=== PATIENT | male | born 1965 | race Caucasian/White ===

== ENCOUNTER 2018-02-18 19:45 | Inpatient (IN) | payer MEDICARE, OTHER ==
[~2018-02-18] VITALS: Ht 170.2 cm; Wt 60.0 kg
[2018-02-18] MEDS ORDERED: SODIUM CHLORIDE 0.9% 1L BAG IV* STA (19:57)
[2018-02-18] MEDS ORDERED: CEFEPIME 2GM/50 ML (PMX) 50 ML IVPB STA (19:57)
[2018-02-18] MEDS ORDERED: VANCOMYCIN 1 GM (PMX) 250 ML IVPB ONE (20:00)
[2018-02-18] MEDS ORDERED: LEVOFLOXACIN 750MG/D5W (PMX) 150 ML IVPB ONE (20:00)
--- NOTE | 2018-02-18 20:00 | ERD ---
ER Documentation Chief Complaint Chief Complaint fever, tachy HPI 52-year-old male history of multiple sclerosis but recent MRI was negative, weakness, urinary tract infection, anemia, decubitus ulcers, BPH, schizophrenia, depression and anxiety presents to the ED via rescue ambulance from [facility] for evaluation of fever tachycardia. Patient complains of generalized weakness but denies shortness of breath, chest pain or palpitations. Abdominal pain, nausea vomiting. Fever at [facility] was apparently 100.5 degrees. History is limited due to the patient's clinical condition and supplemented by his sister who was at the bedside. ROS All systems reviewed and are negative except as per history of present illness. Medications Home Meds Reported Medications Insulin Aspart* (Novolog Insulin Pen*) 100 Unit/Ml Soln, 0 SC .SLIDING SCALE AC, EA IF BS 71-150=0 UNIT<70=GIVE ORANGE JUICE OR 1GM GLUCAGON THEN CALL MD. 151-200=2 UNITS, 201-250=4 UNITS,251-300=6 GIWKP165-429=7 UNITS,351-400=10 UNITS>400=12 UNITS AND CALL MD. 02/18/18 Olanzapine* (Zyprexa*) 2.5 Mg Tablet, 2.5 MG PO BID, #30 TAB 02/18/18 Ondansetron Hcl* (Zofran*) 4 Mg Tab, 4 MG PO Q12H PRN for NAUSEA AND OR VOMITING, TAB 02/18/18 Ascorbic Acid (Vitamin C) 500 Mg Tab, 500 MG PO BID, TAB 02/18/18 Acetaminophen* (Tylenol*) 325 Mg Tablet, 650 MG PO DAILY PRN for PAIN AND OR ELEVATED TEMP, TAB 02/18/18 Acetaminophen* (Tylenol*) 325 Mg Tablet, 650 MG PO Q6H PRN for MILD PAIN LEVEL 1-3, TAB AND FEVER>101F 02/18/18 Tamsulosin Hcl* (Tamsulosin Hcl*) 0.4 Mg Cap.er.24h, 0.4 MG PO DAILY, CAP 02/18/18 Saw/Vit E/Sod Merlene/Lyc/Beta/Pyg (Prostate Health Caplet) 1 Each Tablet, 30 GM PO BID, TAB 02/18/18 Protein Supplement (Promod) 946 Ml Liquid, 30 ML PO TID 02/18/18 Multivitamin with Minerals (Multiple Vitamin) 1 Each Tablet, 1 EACH PO DAILY, TAB 02/18/18 Magnesium Hydroxide* (Milk Of Magnesia*) 400 Mg/5 Ml Oral.susp, 30 ML PO Q24H for CONSTIPATION, ML 02/18/18 Mag Hydrox/Al Hydrox/Simeth (Maalox Advanced Suspension) 355 Ml Oral.susp, 30 ML PO Q6H 02/18/18 Enoxaparin Sodium* (Lovenox*) 40 Mg/0.4 Ml Syringe, 40 MG SC DAILY, SYR 02/18/18 Escitalopram Oxalate* (Lexapro*) 10 Mg Tablet, 10 MG PO QHS, #30 TAB 02/18/18 Bisacodyl* (Bisacodyl*) 10 Mg Supp, 10 MG [place] Q24H for CONSTIPATION, SUPP 02/18/18 Docusate Sodium* (Colace*) 100 Mg Capsule, 100 MG PO BID, #60 CAP 02/18/18 Benzocaine/Menthol* (Cepacol* Sore Throat Lozenges) 1 Each Lozenge, 1 EACH MM q2h PRN for SORE THROAT, LOZENGE 02/18/18 Baclofen* (Baclofen*) 20 Mg Tablet, 20 MG PO BID, TAB 02/18/18 Amantadine Hcl* (Amantadine Hcl*) 100 Mg Capsule, 100 MG PO BID, #60 CAP 02/18/18 Allergies Allergies: Coded Allergies: No Known Allergy (Unverified , 02/18/18) PMhx/Soc Reviewed in chart. As per HPI. Hx Neurological Disorder: Yes (Multiple sclerosis) Hx Cardiac Disorders: No Hx Psychiatric Problems: Yes (Schizophrenia, depression) Hx Miscellaneous Medical Probl: Yes (Anemia, pressure ulcers) Hx Alcohol Use: No Hx Substance Use: No Smoking Status: Former smoker FmHx No family history relevant to presenting Physical Exam Vitals Temperature: 97.8. Blood pressure: 100/56. Pulse: 140. Respirations: 20. O2 saturation 98% on room air. Physical Exam Const: Alert, chronically ill-appearing in moderate distress. Head: Atraumatic Eyes: Normal Conjunctiva ENT: Normal External Ears, Nose and Mouth. Mucous membranes are dry. Neck: Full range of motion. No meningismus. Resp: Tachycardic. Breath sounds are diminished at the bases but otherwise clear to auscultation bilaterally. No rales rhonchi or wheezes. Cardio: Regular rate and rhythm, no murmurs Abd: Soft, suprapubic tenderness with mild distention. No rebound or guarding. Normal bowel sounds Skin: No petechiae or rashes. Multiple decubiti in various stages on sacrum and and feet. Back: No midline or flank tenderness Ext: No cyanosis, or edema Neur: Awake and alert. Psych: Normal Mood and Affect Result Diagram: 02/21/18 1036 02/21/18 1036 Results 24 hrs Laboratory Tests Test 02/18/18 19:59 02/18/18 20:00 02/18/18 20:01 02/18/18 20:35 POC Venous 5.2 mmol/L Lactate White Blood 13.0 10^3/ul Count Red Blood Count 5.52 10^6/ul Hemoglobin 12.3 g/dl Hematocrit 40.3 % Mean 73.0 fl Corpuscular Volume Mean 22.3 pg Corpuscular Hemoglobin Mean 30.5 g/dl Corpuscular Hemoglobin Conc ent Red Cell 19.6 % Distribution Width Platelet Count 753 10^3/UL Mean Platelet 8.7 fl Volume Immature 0.200 % Granulocytes % Neutrophils % % Segmented 53 % Neutrophils % (Manual) Band 39 % Neutrophils % (Manual) Lymphocytes % % Lymphocytes % 4 % (Manual) Monocytes % % Monocytes % 4 % (Manual) Eosinophils % % Basophils % % Nucleated Red 0.0 /100WBC Blood Cells % Immature 0.020 10^3/ul Granulocytes # Neutrophils # 10^3/ul Neutrophils # 7.5 10^3/ul (Manual) Band 5.0 10^3/ul Neutrophils # Lymphocytes 0.5 10^3/ul (Manual) Lymphocytes # 10^3/ul Monocytes # 10^3/ul Monocytes # 0.5 10^3/ul (Manual) Eosinophils # 10^3/ul Basophils # 10^3/ul Nucleated Red 10^3/ul Blood Cells # Pathologist DK Review (Hematol ogy) Platelet INCREASED Estimate Polychromasia 1+ Poikilocytosis 2+ Anisocytosis 1+ Sodium Level 133 mmol/L Potassium Level 5.1 mmol/L Chloride Level 96 mmol/L Carbon Dioxide 15 mmol/L Level Anion Gap 22 Blood Urea 74 mg/dl Nitrogen Creatinine 4.56 mg/dl Est Glomerular 14 mL/min Filtrat Rate mL/min Glucose Level 170 mg/dl Calcium Level 9.6 mg/dl Total Bilirubin 0.1 mg/dl Direct 0.00 mg/dl Bilirubin Indirect 0.1 mg/dl Bilirubin Aspartate Amino 30 IU/L Transf (AST/SGO T) Alanine 37 IU/L Aminotransferas e (ALT/SGPT) Alkaline 215 IU/L Phosphatase Troponin I < 0.012 ng/ml Total Protein 6.6 g/dl Albumin 3.2 g/dl Globulin 3.40 g/dl Albumin/Globuli 0.94 n Ratio Bedside Glucose 167 mg/dL Urine Color YELLOW Urine Clarity TURBID Urine pH 5.0 Urine Specific 1.016 [place] Urine Ketones NEGATIVE mg/dL Urine Nitrite NEGATIVE mg/dL Urine Bilirubin NEGATIVE mg/dL Urine NEGATIVE mg/dL Urobilinogen Urine Leukocyte 3+ Daniel/ul Esterase Urine 23 /HPF Microscopic RBC Urine > 182 /HPF Microscopic WBC Urine Bacteria MODERATE /HPF Urine 1+ mg/dL Hemoglobin Urine Glucose NEGATIVE mg/dL Urine Total 1+ mg/dl Protein Test 02/18/18 20:43 Prothrombin 15.3 Sec Time Prothrombin 1.2 Time Ratio INR 1.19 International Normalized Rati o Activated 32.0 Sec Partial Thrombo plast Time Current Medications Medications Dose Sig/Reza Start Time Status Last (Trade) Ordered Route PRN Stop Time Admin Dose Reason Admin Sodium 2,050 ml BOLUS OVER 2 02/18/18 DC 02/18/18 Chloride HOURS STAT 19:57 20:43 (NS) IV* 02/18/18 19:59 Cefepime HCl 50 ml @ ONCE STAT 02/18/18 DC 02/18/18 100 mls/hr IVPB 19:57 20:43 02/18/18 20:26 Vancomycin 250 ml @ ONCE ONCE 02/18/18 DC 02/18/18 HCl 125 mls/hr IVPB 20:00 20:00 02/18/18 21:59 150 ml @ ONCE ONCE 02/18/18 DC 02/18/18 Levofloxacin/ 100 mls/hr IVPB 20:00 20:00 Dextrose 02/18/18 21:29 Sodium 1,000 ml @ Q6H40M IV 02/18/18 DC 02/20/18 Chloride 150 mls/hr 21:37 17:28 02/20/18 17:37 Procedures/MDM DOCUMENTS REVIEWED: ED nurse, nursing home facility records EKG: Time: 2024. Sinus tachycardia. Ventricular rate 134. Normal [place] QRS. No acute ST segment elevation or depression. No ectopy. Interpretation is limited due to baseline artifact. My Interpretation IMAGING: PROCEDURE: XR Chest. CLINICAL INDICATION: chest pain TECHNIQUE: Single frontal view of the chest was obtained COMPARISON: None FINDINGS: The study is limited. The left lung base was not completely included. The heart and mediastinum are within normal limits. There are low lung volumes. There is a patchy left lower lobe infiltrate versus atelectasis. There is right lower lobe atelectasis. There is elevation of the right diaphragm. There is no pleural effusion or pneumothorax. RPTAT: AA IMPRESSION: Incomplete study. The left lung base was not completely included. Repeat study is recommended. Patchy left lower lobe infiltrate versus atelectasis. Elevation of the right diaphragm with right lower lobe atelectasis. .Kenan Stafford MD, MD Date Time Electronically viewed and signed by .Kenan Stafford MD, on 02/18/2018 20:42 .S/ MEDICAL DECISION MAKIN-year-old male history of multiple sclerosis but recent MRI was negative, weakness, urinary tract infection, anemia, decubitus ulcers, BPH, schizophrenia, depression and anxiety presents to the ED via rescue ambulance from [facility] for evaluation of fever tachycardia. CBC reveals leukocytosis and borderline anemia. Chemistry significant for mild hyperglycemia, markedly elevated BUN/creatinine, hyponatremia, hypochloremia and metabolic acidosis. Baseline BUN/creatinine is unknown. Urinalysis reveals pyuria consistent with urinary tract infection. Chavarria catheter was replaced and over 1 L of grossly purulent urine obtained consistent with urinary tract infection and obstructive uropathy. Chest x-ray reveals multi lobar infiltrates versus atelectasis. Sepsis Documentation: Patient's infectious symptoms have not stabilized and the patient is at risk of rapid decompensation. The patient will be admitted for careful hydration, antibiotic therapy, and infectious source control. SEVERE SEPSIS CRITERIA: Infectious source: Urinary tract infection End organ damage indicated by: Lactate > 2.0 mmol/L Inspector Cold Working > 2.0 SEPSIS MANAGEMENT Time of recognition of septic shock: 19:59. 3 HOUR BUNDLE Blood cultures x 2 before broad-spectrum antibiotics: Yes 30 ml/kg NS bolus Completed Initial lactate: 5.2 mmol/L Repeat lactate: 3.4mmol/L SEPTIC SHOCK ASSESSMENT: Lactic acid > 4.0: Yes Persistent hypotension (SBP < 90 or 40 mmHg drop, MAP < 65) despite 30 mL/kg IV fluid bolus: No VOLUME REASSESSMENT FOR SEPTIC SHOCK: Reevaluation Time: 22:23 Temp 97.9, BP 104/77, HR 127, RR 28, Pox 99% on 2 L by nasal cannula Heart: Regular rate & rhythm Lungs: No crackles Skin: Warm & dry Cap Refill: Less than 2 seconds Peripheral pulses: Radially present No hypotension CRITICAL CARE Critical care time: 35 minutes Emergent fluid management while maintaining close respiratory support. Prov ision of immediate and broad-spectrum antibiotic therapy. Simultaneous assessment for possible sources in order to direct targeted therapy. Consideration for invasive and chemical support to prevent cardiopulmonary collapse. Critical care time is independent of procedures performed. Admit to [med/surg, telemetry, ICU] for further evaluation and management. PATIENT CARE TRANSITIONED: Time: 22:02, Dr. Chawla. Counseled patient and family regarding diagnosis, diagnostic results and plan for admission. Departure Diagnosis: Primary Impression: Septic shock Additional Impressions: Acute renal failure Acute renal failure type: unspecified Qualified Codes: N17.9 - Acute kidney failure, unspecified Pneumonia Pneumonia type: due to unspecified organism Laterality: unspecified laterality Lung location: unspecified part of lung Qualified Codes: J18.9 - Pneumonia, unspecified organism Urinary tract infection Urinary tract infection type: catheter-associated UTI Indwelling urinary catheter type: indwelling urethral catheter Encounter type: initial encounter Qualified Codes: T83.511A - Infection and inflammatory reaction due to indwelling urethral catheter, initial encounter; N39.0 - Urinary tract infection, site not specified Obstructive uropathy Condition: Critical MALACHI MARTINEZ MD Feb 18, 2018 20:00
[2018-02-18] MEDS ORDERED: BACL20TA PO (20:21)
[2018-02-18] MEDS ORDERED: AMAN100C96 PO (20:21)
[2018-02-18] MEDS ORDERED: BISA10SU75 PR (20:23)
[2018-02-18] MEDS ORDERED: DOCU-144 PO (20:23)
[2018-02-18] MEDS ORDERED: BENZ1LOZ52 MM (20:23)
[2018-02-18] MEDS ORDERED: ESCI10TA PO (20:24)
[2018-02-18] MEDS ORDERED: ENOX40DI14 SC (20:24)
[2018-02-18] MEDS ORDERED: MAG355OR14 PO (20:25)
[2018-02-18] MEDS ORDERED: MULT-506 PO (20:26)
[2018-02-18] MEDS ORDERED: MAGN400O19 PO (20:26)
[2018-02-18] MEDS ORDERED: PROT946L PO (20:27)
[2018-02-18] MEDS ORDERED: TAMS0.4C2 PO (20:29)
[2018-02-18] MEDS ORDERED: SAW/1TAB2 PO (20:29)
[2018-02-18] MEDS ORDERED: ACET325T33 PO ×2 (20:31)
[2018-02-18] MEDS ORDERED: ASC500 PO (20:31)
[2018-02-18] MEDS ORDERED: ONDA4TAB13 PO (20:32)
[2018-02-18] MEDS ORDERED: OLAN2.5T28 PO (20:33)
[2018-02-18] MEDS ORDERED: NOVO3I SC (20:38)
[2018-02-18] MEDS: SOD CHLORIDE 0.9% 1,000 ML IV SCH (21:37)
--- NOTE | 2018-02-18 21:54 | HP ---
Date/Time of Note Date/Time of Note DATE: 02/18/18 TIME: 21:35 Assessment/Plan VTE Prophylaxis Pharmacological prophylaxis: heparin Lines/Catheters IV [facility]from [facility] Saline Lock Assessment/Plan Hospital Course This is a 52-year-old male being admitted to the ICU floor for: #1 septic shock: Secondary to underlying catheter related urinary tract infection, suspect infected decubitus ulcer, bilateral foot wounds, possible healthcare associated pneumonia. Bands. Patient was given vancomycin Levaquin and cefepime in the ED. At the current time we will continue the patient vancomycin and meropenem given his history of ESBL. Will trend lactic acid levels initial was 3.4. IV fluid resuscitation with normal saline. Monitor closely in the ICU, may need pressor support for blood pressure. #2 healthcare associated pneumonia: Vancomycin and meropenem at the current time. Renally dose. Await culture results. #3 catheter related urinary tract infection: Patient has a history of ESBL. Vanco and meropenem at the current time. Await urine culture results. #4 multiple skin wounds: Patient has multiple decubitus ulcers including unstageable left buttocks ulcer, sacral decub, and foot wounds. Wound care, wound care consult. Antibiotics of vancomycin and meropenem. Will obtain x- rays of the bilateral feet as well as a CT scan of the abdomen and pelvis once patient is stable to assess further. Consider consult to general surgery as patient may benefit from debridement. #5 acute versus acute on chronic kidney injury: I do not have a previous baseline creatinine. At the current time patient is producing urine. Will check a renal ultrasound, urine microscope, osmolality, urine sodium, protein creatinine ratio. Will consult nephrology. #6 hyponatremia: Likely secondary to poor p.o. intake as well as dehydration from underlying urinary tract infection. At the current time will hydrate with normal saline. Monitor renal function. #7 dehydration: Secondary to prerenal causes, sepsis, urinary tract infection. At the current time will hydrate patient with normal saline. Monitor fluid status. Monitor urine output. #8 Microcytic anemia: We will check iron stores, fecal occult blood. Nose current signs of bleeding. #9 history of ESBL: Obtain urine cultures, currently on meropenem #10 history of MRSA: Currently on vancomycin #11 dementia: Possibly vascular, however there could be a component of Glynn's disease or Lewy body dementia as patient has been displaying aggr essive behavior. Once patient is stable consider MRI and neurology consultation as patient has not been able to obtain a consultation as an outpatient. #12 paranoid schizophrenia: Continue Zyprexa, escitalopram, consider psych consultation when patient is more improved. #13 functional debility: Patient has been deteriorating over the last year or so according to the sister. No known cause has been found as to why the patient has continued to deteriorate and why he has decreased mobility. At the current time we will continue baclofen. PT consultation once the patient is clinically stable. Consider neurology consultation for further evaluation. #14 history of blood clot: Heparin subcu at the current time for prophylaxis #15 DVT GI prophylaxis: Heparin subcu, Protonix Further treatment strategy will be implemented as per the clinical course Greater than 55 minutes of critical care time was spent on the care and management of this patient. CODE STATUS: Patient currently is a Full Code. I did have a discussion with the sister and the mother at the bedside. At the current time they agreed to be discussing the patient's case further and they understand his critical illness. There is a possibility that they may switch him to DNR/DNI, we will await their decision. Result Diagram: 02/18/18199902/18/181999 Results 24hrs Laboratory Tests Test 02/18/18 19:59 02/18/18 20:00 02/18/18 20:01 02/18/18 20:35 POC Venous 5.2 *H Lactate White Blood 13.0 H Count Red Blood Count 5.52 Hemoglobin 12.3 L Hematocrit 40.3 L Mean Corpuscular 73.0 L Volume Mean Corpuscular 22.3 L Hemoglobin Mean Corpuscular 30.5 L Hemoglobin Tamia nt Red Cell 19.6 H Distribution Width Platelet Count 753 H Mean Platelet 8.7 Volume Immature 0.200 Granulocytes % Neutrophils % Segmented 53 Neutrophils % (Manual) Band Neutrophils 39 H % (Manual) Lymphocytes % Lymphocytes % 4 L (Manual) Monocytes % Monocytes % 4 (Manual) Eosinophils % Basophils % Nucleated Red 0.0 Blood Cells % Immature 0.020 Granulocytes # Neutrophils # Neutrophils # 7.5 (Manual) Band Neutrophils 5.0 H # Lymphocytes 0.5 L (Manual) Lymphocytes # Monocytes # Monocytes # 0.5 (Manual) Eosinophils # Basophils # Nucleated Red Blood Cells # Platelet INCREASED Estimate Polychromasia 1+ Poikilocytosis 2+ Anisocytosis 1+ Sodium Level 133 L Potassium Level 5.1 Chloride Level 96 L Carbon Dioxide 15 L Level Anion Gap 22 H Blood Urea 74 H Nitrogen Creatinine 4.56 H Est Glomerular 14 L Filtrat Rate mL/min Glucose Level 170 Calcium Level 9.6 Total Bilirubin 0.1 L Direct Bilirubin 0.00 Indirect 0.1 Bilirubin Aspartate Amino 30 Transf (AST/SGOT ) Alanine 37 Aminotransferase (ALT/SGPT) Alkaline 215 H Phosphatase Troponin I < 0.012 Total Protein 6.6 Albumin 3.2 L Globulin 3.40 H Albumin/Globulin 0.94 Ratio Bedside Glucose 167 Urine Color YELLOW Urine Clarity TURBID A Urine pH 5.0 Urine Specific 1.016 [place] Urine Ketones NEGATIVE Urine Nitrite NEGATIVE Urine Bilirubin NEGATIVE Urine NEGATIVE Urobilinogen Urine Leukocyte 3+ H Esterase Urine 23 H Microscopic RBC Urine > 182 H Microscopic WBC Urine Bacteria MODERATE Urine Hemoglobin 1+ H Urine Glucose NEGATIVE Urine Total 1+ H Protein Test 02/18/18 20:43 Prothrombin Time 15.3 H Prothrombin Time 1.2 Ratio INR 1.19 International Normalized Ratio Activated 32.0 Partial Thrombop last Time HPI/ROS Admit Date/Time Admit Date/Time Hx of Present Illness Chief complaint: Fever tachycardia This is a 52-year-old male with a questionable history of multiple sclerosis but recent MRI was negative, who presented to the ED via rescue ambulance from [facility] for evaluation of fever tachycardia. Patient complains of generalized weakness but denies shortness of breath, chest pain or palpitations. Abdominal pain, nausea vomiting. Fever at [facility] was apparently 100.5 degrees. Patient himself is also reporting pain in his back and the buttocks area. He was accompanied by his sister who was able to provide further history. Sister reports that she noticed him feeling weak and he was sweating and he was confused in the last time this that happened he was diagnosed with urinary tract infection. The the sister reports that approximately for the last 1 year or so patient has been slowly deteriorating. She has noticed that his behavior has become aggressive and he also has become more paranoid. 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 He has been in and out of hospitals and he [facility]. She notes that he has had problems with his memory as well and he has been diagnosed with dementia. He was given a diagnosis of multiple sclerosis however his MRIs have been negative. He has progressively gotten worse in his mobility and initially was on a cane and then progressed to a walker with him recently not being able to be mobile. Patient was supposed to see neurology however the sister states that they have been unsuccessful in obtaining a consultation.for further workup Allergies: NKDA Medications: See JASWANT COLMENARES Const: As per HPI Eyes : No pain discharge or redness or change in visual acuity ENT: No pain, sore throat, congestion, congestion, dysphagia or discharge Respiratory: No shortness of breath, cough, sputum, wheezing, or pleuritic pain Cardiovascular: No chest pain, palpitation, PND, or edema GI : no change in appetite, abdominal pain, nausea, vomiting, diarrhea, constipation, or change in the color his stool Genitourinary: No dysuria, hematuria, flank pain , discharge or CVA tenderness Musculoskeletal: As per HPI Skin: As per HPI Neuro: No headache, dizziness, syncope, seizure, focal weakness Endocrine: No polyuria, polydipsia, temperature intolerance Psych: No hallucination, depression, anxiety or suicidal ideation PMH/Family/Social Past Medical History Catheter related urinary tract infection, history of ESBL, history of MRSA, osteoporosis, chronic Chavarria, history of CVA x4, paranoid schizophrenia, history of blood clot, dementia, decubitus ulcer, bilateral foot wounds, Medications Current Medications Vancomycin HCl 250 ml @ 125 mls/hr ONCE ONCE IVPB ; Start 02/18/18 at 20:00; Stop 02/18/18 at 21:59 Coded Allergies: No Known Allergy (Unverified , 02/18/18) Past Surgical History Past Surgical Hx: no surgical history Family History Significant Family History: no pertinent family hx Social History Smoking Status: Former smoker Exam/Review of Systems Vital Signs Vitals Vital Signs Date Temp Pulse Resp B/P (MAP) Pulse Ox O2 O2 Flow FiO2 Time Delivery Rate 02/18/18 98.6 134 32 98/66 (77) 97 Room Air 20:48 Exam Exam General: Patient is currently lying in bed in moderate distress from pain in his decubitus HEENT: Atraumatic, normocephalic. The pupils are equal, round and reactive. Extraocular motor are intact Neck: Supple with full range of motion. No rigidity or meningismus Lungs: Clear to auscultation bilaterally no crackles rales or wheezing Heart: Sinus tachycardia Abdomen: Soft , nontender, nondistended , bowel sounds are present. No guarding no rebound tenderness , No masses or organomegaly. No costovertebral temporal angle mass Genitourinary: Chavarria in place draining yellow pus filled urine Extremities: Normal to inspection, no edema no cyanosis Skin: Extensive unstageable ulcer of the left buttocks, decubiti of the sacrum, necrotic tissue noted of the bilateral feet Neurologic: Awake and alert, oriented x2, cranial nerves II through XII intact, decreased range of motion and strength of the bilateral lower extremity Additional Comments PROCEDURE: XR Chest. CLINICAL INDICATION: chest pain TECHNIQUE: Single frontal view of the chest was obtained COMPARISON: None FINDINGS: The study is limited. The left lung base was not completely included. The heart and mediastinum are within normal limits. There are low lung volumes. There is a patchy left lower lobe infiltrate versus atelectasis. There is right lower lobe atelectasis. There is elevation of the right diaphragm. There is no pleural effusion or pneumothorax. RPTAT: AA IMPRESSION: Incomplete study. The left lung base was not completely included. Repeat study is recommended. Patchy left lower lobe infiltrate versus atelectasis. Elevation of the right diaphragm with right lower lobe atelectasis. .Kenan Stafford MD, Date Time Electronically viewed and signed by .Kenan Stafford MD, on 02/18/2018 20:42 .S/ CC: MALACHI MARTINEZ MD [id number] JANENE BE Feb 18, 2018 21:45
[2018-02-18] MEDS ORDERED: VANCOMYCIN IV PER PHARMACY XX SCH (22:00)
[2018-02-18] MEDS ORDERED: ALBUTEROL 0.083% (NEB) 2.5 MG/3 ML AMP NEB PRN (22:00)
[2018-02-18] MEDS ORDERED: PIPER-TAZO 2.25 GM (PMX) 50 ML IVPB SCH (22:00)
[2018-02-18] MEDS ORDERED: IPRATROPIUM (NEB) 0.5 MG/2.5 ML AMP NEB PRN (22:00)
[2018-02-18] MEDS ORDERED: ONDANSETRON 4 MG INJ IV PRN (22:00)
[2018-02-18] MEDS ORDERED: ACETAMINOPHEN 650MG/20.3ML CUP PO PRN (22:00)
--- NOTE | 2018-02-18 22:33 | NUR ---
Vancomycin per Rx 52 y/o M 5'9" 68kg SCr 4.56 NKDA Give Vancomycin 1gm IV x1 dose now Monitor renal function Will redose or check random level if SCr changes
[2018-02-18] MEDS ORDERED: GLUCOSE GEL 15 GRAM TUBE PO PRN ×2 (23:00)
[2018-02-18] MEDS ORDERED: GLUCOSE GEL 15 GRAM TUBE BUCCAL PRN (23:00)
[2018-02-18] MEDS ORDERED: GLUCAGON 1 MG INJ IM PRN (23:00)
[2018-02-18] MEDS ORDERED: DEXTROSE 50% 50 ML SYRINGE IV PRN ×2 (23:00)
--- NOTE | 2018-02-18 23:52 | NUR ---
PATIENT RECEIVED FROM ER. REPORT CALLED PREVIOUSLY BY OLIVIA DAHL. PATIENT PLACED ON MONITOR, ALL WOUNDS CLEANSED AND DRESSINGS CHANGED, MRSA SWAB COLLECTED RIGHT NARE. NO SIGNS OF ACUTE DISTRESS PRESENT. WILL CONTINUE TO MONITOR CLOSELY.
[2018-02-19] VITALS (25 sets, daily range): BP systolic 87–102; BP diastolic 54–75; PULSE 125–145; RESP 15–39; Ht 170.2 cm; Wt 60.0 kg
[2018-02-19] MEDS ORDERED: MEROPENEM 500MG/50 ML (PMX) 50 ML IVPB SCH
[2018-02-19] MEDS ORDERED: traMADol 50 MG TAB PO ONE
[2018-02-19] MEDS: INSULIN ASPART [NOVOLOG] 3 ML PEN SC SCH ×5 (00:55→21:00)
[2018-02-19] MEDS: BISACODYL 10 MG SUPP PR SCH ×2 (00:56→22:00)
[2018-02-19] MEDS: HEPARIN 5,000 UNIT/1 ML VIAL SC SCH ×3 (00:58→13:54)
[2018-02-19] MEDS: ACCU-CHEK XX SCH (01:08)
--- NOTE | 2018-02-19 01:44 | NUR ---
MD BE INFORMED OF PATIENT CRITICAL LACTIC ACID RESULT. NO NEW ORDERS.
[2018-02-19] MEDS: MEROPENEM 500MG/50 ML (PMX) 50 ML IVPB SCH ×3 (02:00→23:16)
[2018-02-19] MEDS ORDERED: SOD CHLORIDE 0.9% 1,000 ML IV ONE ×3 (02:00→22:00)
[2018-02-19] MEDS: HYDROmorphONE 1 MG/ML SYG IV PRN ×4 (03:26→23:12)
[2018-02-19] MEDS ORDERED: LIDOCAINE 1% (MPF) 5 ML VIAL SC ONE ×2 (04:30→05:00)
[2018-02-19] MEDS: ALBUMIN HUMAN 25% 100 ML IV SCH ×2 (05:55→06:01)
[2018-02-19] MEDS: PANTOPRAZOLE 40 MG INJ IV SCH (06:09)
--- NOTE | 2018-02-19 08:12 | PN ---
Date/Time of Note Date/Time of Note DATE: 02/19/18 TIME: 08:07 Assessment/Plan VTE Prophylaxis SCD applied (from Nsg): Yes Pharmacological prophylaxis: other Pharm contraindication: renal impairment Lines/Catheters IV Catheter Type (from Nrsg): Peripheral IV Urinary Cath still in place: Yes Reason Cath still needed: urinary retention Assessment/Plan Problems: (1) Obstructive uropathy Status: Acute (2) Septic shock Status: Acute (3) Urinary tract infection Status: Acute Qualifiers: Urinary tract infection type: catheter-associated UTI Indwelling urinary catheter type: indwelling urethral catheter Encounter type: initial encounter Qualified Codes: T83.511A - Infection and inflammatory reaction due to indwelling urethral catheter, initial encounter; N39.0 - Urinary tract infection, site not specified (4) Acute renal failure Status: Acute Qualifiers: Acute renal failure type: unspecified Qualified Codes: N17.9 - Acute kidney failure, unspecified (5) Pneumonia Status: Acute Qualifiers: Pneumonia type: due to unspecified organism Laterality: unspecified laterality Lung location: unspecified part of lung Qualified Codes: J18.9 - Pneumonia, unspecified organism Assessment/Plan responding toivf non oliguric o2 sats ok increase ivf to 150 cc per hour Result Diagram: 02/19/18 0445 02/19/18 0445 Results 24hrs Laboratory Tests Test 02/18/18 19:59 02/18/18 20:00 02/18/18 20:01 02/18/18 20:35 POC Venous 5.2 *H Lactate White Blood 13.0 H Count Red Blood Count 5.52 Hemoglobin 12.3 L Hematocrit 40.3 L Mean Corpuscular 73.0 L Volume Mean Corpuscular 22.3 L Hemoglobin Mean Corpuscular 30.5 L Hemoglobin Tamia nt Red Cell 19.6 H Distribution Width Platelet Count 753 H Mean Platelet 8.7 Volume Immature 0.200 Granulocytes % Neutrophils % Segmented 53 Neutrophils % (Manual) Band Neutrophils 39 H % (Manual) Lymphocytes % Lymphocytes % 4 L (Manual) Monocytes % Monocytes % 4 (Manual) Eosinophils % Basophils % Nucleated Red 0.0 Blood Cells % Immature 0.020 Granulocytes # Neutrophils # Neutrophils # 7.5 (Manual) Band Neutrophils 5.0 H # Lymphocytes 0.5 L (Manual) Lymphocytes # Monocytes # Monocytes # 0.5 (Manual) Eosinophils # Basophils # Nucleated Red Blood Cells # Platelet INCREASED Estimate Polychromasia 1+ Poikilocytosis 2+ Anisocytosis 1+ Sodium Level 133 L Potassium Level 5.1 Chloride Level 96 L Carbon Dioxide 15 L Level Anion Gap 22 H Blood Urea 74 H Nitrogen Creatinine 4.56 H Est Glomerular 14 L Filtrat Rate mL/min Glucose Level 170 Calcium Level 9.6 Total Bilirubin 0.1 L Direct Bilirubin 0.00 Indirect 0.1 Bilirubin Aspartate Amino 30 Transf (AST/SGOT ) Alanine 37 Aminotransferase (ALT/SGPT) Alkaline 215 H Phosphatase Troponin I < 0.012 Total Protein 6.6 Albumin 3.2 L Globulin 3.40 H Albumin/Globulin 0.94 Ratio Bedside Glucose 167 Urine Color YELLOW Urine Clarity TURBID A Urine pH 5.0 Urine Specific 1.016 [place] Urine Ketones NEGATIVE Urine Nitrite NEGATIVE Urine Bilirubin NEGATIVE Urine NEGATIVE Urobilinogen Urine Leukocyte 3+ H Esterase Urine 23 H Microscopic RBC Urine > 182 H Microscopic WBC Urine Bacteria MODERATE Urine Hemoglobin 1+ H Urine Glucose NEGATIVE Urine Total 1+ H Protein Test 02/18/18 20:43 02/18/18 22:19 02/19/18 00:50 02/19/18 00:51 Prothrombin Time 15.3 H Prothrombin Time 1.2 Ratio INR 1.19 International Normalized Ratio Activated 32.0 Partial Thrombop last Time POC Venous 3.4 *H Lactate Urine Color YELLOW Urine Clarity TURBID A Urine pH 5.0 Urine Specific 1.013 [place] Urine Ketones NEGATIVE Urine Nitrite POSITIVE A Urine Bilirubin NEGATIVE Urine NEGATIVE Urobilinogen Urine Leukocyte 2+ H Esterase Urine 37 H Microscopic RBC Urine > 182 H Microscopic WBC Urine Bacteria MANY A Urine Mucus MODERATE Urine Hemoglobin 2+ H Urine Osmolality 413 Urine Random 69.72 Creatinine Urine Random 36 Sodium Urine 0.77 Protein/Creatini ne Ratio Urine Glucose NEGATIVE Urine Total 54.0 H Protein Bedside Glucose 123 Osmolality 292 Lactic Acid 4.6 *H Level Test 02/19/18 04:45 02/19/18 05:43 White Blood 13.9 H Count Red Blood Count 5.06 Hemoglobin 11.4 L Hematocrit 36.6 L Mean Corpuscular 72.3 L Volume Mean Corpuscular 22.5 L Hemoglobin Mean Corpuscular 31.1 L Hemoglobin Tamia nt Red Cell 19.1 H Distribution Width Platelet Count 534 #H Mean Platelet 8.5 Volume Immature 0.600 H Granulocytes % Neutrophils % Segmented 17 L Neutrophils % (Manual) Band Neutrophils 77 H % (Manual) Lymphocytes % Lymphocytes % 4 L (Manual) Monocytes % Monocytes % 2 (Manual) Eosinophils % Basophils % Nucleated Red 0.0 Blood Cells % Immature 0.080 H Granulocytes # Neutrophils # Neutrophils # 3.9 (Manual) Band Neutrophils 10.7 H # Lymphocytes 0.5 L (Manual) Lymphocytes # Monocytes # Monocytes # 0.2 L (Manual) Eosinophils # Basophils # Nucleated Red Blood Cells # Platelet INCREASED Estimate Giant Platelets 1 H Polychromasia 1+ Poikilocytosis 3+ Anisocytosis 1+ Spherocytes 1+ Sodium Level 134 L Potassium Level 5.0 Chloride Level 101 Carbon Dioxide 16 L Level Anion Gap 17 H Blood Urea 65 H Nitrogen Creatinine 3.09 #H Est Glomerular 22 L Filtrat Rate mL/min Glucose Level 103 # Hemoglobin A1c 5.2 Lactic Acid 3.8 *H Level Calcium Level 9.1 Iron Level 35 Total Iron 177 L Binding Capacity Percent Iron 20 L Saturation Ferritin 1510.0 H Total Bilirubin 0.1 L Direct Bilirubin 0.00 Indirect 0.1 Bilirubin Aspartate Amino 30 Transf (AST/SGOT ) Alanine 44 Aminotransferase (ALT/SGPT) Alkaline 154 H Phosphatase Total Protein 5.1 #L Albumin 2.5 L Globulin 2.60 Albumin/Globulin 0.96 Ratio Triglycerides 68 Level Cholesterol 90 L Level LDL Cholesterol, 44 Calculated HDL Cholesterol 32 Cholesterol/HDL 2.8 Ratio Thyroid 2.100 Stimulating Hormone (TSH) Free Thyroxine 2.33 H Free 2.14 L Triiodothyronine (T3) pg/mL Random Cortisol > 123.0 Bedside Glucose 102 Subjective 24 Hr Interval Summary Constitutional: requiring IVF ENT: no complaints Respiratory: no complaints Cardiovascular: no complaints Gastrointestinal: no complaints Genitourinary: dysuria, discharge Skin: no complaints Neurologic: other Exam/Review of Systems Vital Signs Vitals Vital Signs Date Temp Pulse Resp B/P (MAP) Pulse Ox O2 O2 Flow FiO2 Time Delivery Rate 02/19/18 98.0 08:01 02/19/18 132 23 98/71 (80) Room Air 06:00 02/19/18 95 03:00 02/18/18 2.0 22:23 Intake and Output 02/18/18 02/18/18 02/19/18 1414:59 22:59 06:59 IntakeIntake Total 700 ml OutputOutput Total 390 ml BalanceBalance 310 ml Exam Constitutional: alert, oriented Head: normocephalic, atraumatic Eyes: nl conjunctiva, EOMI ENMT: nl external ears & nose, nl lips & teeth Neck: supple, non-tender Respiratory: clear to auscultation, normal air movement Cardiovascular: regular rate and rhythm, nl pulses Gastrointestinal: soft, nl liver, spleen, non-tender Genitourinary - Male: discharge Neurological: [employer] II-XII intact Skin: nl turgor Medications Medications Current Medications Sodium Chloride 1,000 ml @ 100 mls/hr Q10H IV Last administered on 02/18/18at 21:37; Admin Dose 100 MLS/HR; Start 02/18/18 at 21:37 Ondansetron HCl (Zofran Inj) 4 mg Q6H PRN IV NAUSEA AND/OR VOMITING; Start 02/18/18 at 22:00 Albuterol (Proventil 0.083% (Neb)) 2.5 mg Q2H RESP THERAPY PRN NEB SHORTNESS OF BREATH; Start 02/18/18 at 22:00 Ipratropium Yeoman (Atrovent 0.02% (Neb)) 0.5 mg Q2H RESP THERAPY PRN NEB SHORTNESS OF BREATH; Start 02/18/18 at 22:00 Acetaminophen (Tylenol Liquid) 650 mg Q6H PRN PO PAIN LEVEL 1-3 OR FEVER; Start 02/18/18 at 22:00 Pantoprazole (Protonix Iv) 40 mg DAILY@06 IV Last administered on 02/19/18at 06:09; Admin Dose 40 MG; Start 02/19/18 at 06:00 Heparin Sodium (Porcine) (Heparin (5000 Units/1ml)) 5,000 unit Q8 SC Last administered on 02/19/18at 06:03; Admin Dose 5,000 UNIT; Start 02/18/18 at 22:00 Vancomycin HCl (Vanco Iv Per Pharmacy) VANCOMYCIN PER PHARMACY PER PROTOCOL XX ; Start 02/18/18 at 22:00 Amantadine HCl (Symmetrel) 100 mg BID PO ; Start 02/19/18 at 09:00 Ascorbic Acid (Vitamin C) 500 mg BID PO ; Start 02/19/18 at 09:00 Baclofen (Lioresal) 20 mg BID PO ; Start 02/19/18 at 09:00 Bisacodyl (Dulcolax Supp) 10 mg Q24H ME Last administered on 02/19/18at 00:56; Admin Dose 10 MG; Start 02/18/18 at 22:00 Docusate Sodium (Colace) 100 mg BID PO ; Start 02/19/18 at 09:00 Escitalopram Oxalate (Lexapro) 10 mg QHS PO ; Start 02/19/18 at 21:00 Olanzapine (Zyprexa) 2.5 mg BID PO ; Start 02/19/18 at 09:00 Diagnostic Test (Pha) (Accu-Chek) 1 ea 02 XX Last administered on 02/19/18at 01:08; Admin Dose 1 EA; Start 02/19/18 at 02:00 Insulin Aspart (Novolog Insulin Pen) NOVOLOG *MILD* ALGORI... Q4 SC ; Start 02/19/18 at 01:00 Miscellaneous Information 1 ea NOTE XX ; Start 02/18/18 at 23:00 Glucose (Glutose) 15 gm Q15M PRN PO DECREASED GLUCOSE; Start 02/18/18 at 23:00 Glucose (Glutose) 22.5 gm Q15M PRN PO DECREASED GLUCOSE; Start 02/18/18 at 23:00 Dextrose (D50w Syringe) 25 ml Q15M PRN IV DECREASED GLUCOSE; Start 02/18/18 at 23:00 Dextrose (D50w Syringe) 50 ml Q15M PRN IV DECREASED GLUCOSE; Start 02/18/18 at 23:00 Glucagon (Glucagen) 1 mg Q15M PRN IM DECREASED GLUCOSE; Start 02/18/18 at 23:00 Glucose (Glutose) 15 gm Q15M PRN BUCCAL DECREASED GLUCOSE; Start 02/18/18 at 23:00 Meropenem/Sodium Chloride 50 ml @ 100 mls/hr Q12 IVPB ; Start 02/19/18 at 02:00 Hydromorphone HCl (Dilaudid) 0.2 mg Q4H PRN IV SEVERE PAIN LEVEL 7-10 Last administered on 02/19/18at 03:26; Admin Dose 0.2 MG; Start 02/19/18 at 03:30 Influenza Virus Vaccine Quadrival (Fluzone) 0.5 ml ONCE ONCE IM* ; Start 02/19/18 at 10:00; Stop 02/19/18 at 10:01; Status Future Hold MATILDE ROY MD Feb 19, 2018 08:12
[2018-02-19] MEDS: DOCUSATE SODIUM 100 MG CAP PO SCH ×2 (08:49→23:16)
[2018-02-19] MEDS: AMANTADINE 100 MG CAP PO SCH ×2 (08:50→23:22)
[2018-02-19] MEDS: ASCORBIC ACID 500 MG TAB PO SCH ×2 (08:50→23:15)
[2018-02-19] MEDS: BACLOFEN 10 MG TAB PO SCH ×2 (08:50→23:15)
[2018-02-19] MEDS: OLANZAPINE 2.5 MG TAB PO SCH ×2 (08:52→23:23)
[2018-02-19] MEDS: SOD CHLORIDE 0.9% 1,000 ML IV SCH ×3 (08:58→21:25)
[2018-02-19] MEDS ORDERED: PIPER-TAZO 3.375 GM IV (PMX) 100 ML IVPB SCH (09:00)
[2018-02-19] MEDS ORDERED: Insulin NOVOLOG SS MILD Algorithm (SS with meals and bedtime) SC SCH (11:00)
--- NOTE | 2018-02-19 14:10 | CONS ---
DATE OF ADMISSION: 02/18/2018 DATE OF CONSULTATION: 02/19/2018 TYPE OF CONSULTATION: Infectious Disease. REASON FOR CONSULTATION: Antibiotic management. HISTORY OF PRESENT ILLNESS: Suman Martell is a 52-year-old male admitted on 02/18/2018 with septic s hock, probably related to catheter related urinary tract infection and is being seen for antibiotic m anagement. His problems include septic shock secondary to catheter related urinary tract infection. The patient also has an infected decubitus ulcer, bilateral foot wounds, possible healthcare-associa deloris pneumonia. He was given vancomycin, Levaquin and cefepime in the emergency room. At the present time, he is on vancomycin and meropenem because of a history of ESBL. His white count on admission was 13, H and H of 12.3 and 40.3, platelet count 753,000. BUN and creatinine is 74/4.56, glucose of 170. Blood cultures from 02/18/2018 are growing gram-negative rods. White count today is 13.9. Med ications were Zosyn and I believe Levaquin. This was switched to vancomycin, meropenem and Levaquin, which he is currently taking. Chest x-ray: Mild bibasilar atelectasis and infiltrates unchanged. Chest x-ray: Incomplete study left lung base not completely included, repeat study patchy, lower lob e infiltrates versus atelectasis, elevation of right hemidiaphragm with right lower lobe atelectasis. A foot x-ray from 02/19/2018 shows diffuse soft tissue swelling with areas of probable wound/ulcers . No definite radiographic evidence of osteomyelitis; however, recommend MRI for further evaluation if clinically indicated, which is a more sensitive test. An x-ray of the foot on the 02/19/2018 show s diffuse soft tissue swelling with findings concerning for possible osteomyelitis on the left distal 5th metatarsal. Consider MRI for further evaluation. A CT scan of the abdomen and pelvis shows lar ge left decubitus ulcer with underlying osteomyelitis of the proximal left femur, additional large ri ght sacral decubitus ulcer with no definite evidence of underlying osteomyelitis, mild left hydroneph rosis, no obstructing stone with mass-like soft tissue obscuring this and mid left ureter. I recomme nd CT urogram for further evaluation. Findings are compatible with fluid overload including severe a scites, bilateral pleural effusions, interstitial pulmonary edema. A renal ultrasound shows minimal right-sided hydronephrosis, left-sided hydronephrosis, small right renal cyst, bilateral renal parenc hymal disease, small to moderate volume ascites. Obviously, this patient has multiple problems. He was seen by urology, I believe. Urinary catheter in place. Urinary retention, obstructive uropathy septic shock, acute urinary tract infection, indwelling Chavarria, acute renal failure, pneumonia unspeci fied. PAST MEDICAL HISTORY: Positive for multiple sclerosis, schizophrenia and depression, anemia, pressur e ulcers. Operations as outlined. FAMILY HISTORY: Noncontributory. SOCIAL HISTORY: He does not smoke, drink or abuse drugs. ALLERGIES: NONE TO PENICILLIN, SULFA OR FOODS. MEDICATIONS: Per chart. REVIEW OF SYSTEMS: Noncontributory. PHYSICAL EXAMINATION: GENERAL: The patient is a chronically ill-appearing male in no acute distress. VITAL SIGNS: Stable. He is afebrile. SKIN: Without generalized rash. HEENT: Within normal limits. NECK: Supple. LYMPH NODES: None palpable. CHEST: Decreased breath sounds at the bases. HEART: Without murmur or gallop. ABDOMEN: Soft, nontender without organosplenomegaly or masses. EXTREMITIES: Without cyanosis, clubbing or edema. BACK: Shows multiple decubitus ulcers including unstageable left buttock ulcers. He has foot ulcers . RECTAL AND GENITAL: Deferred. He has a Chavarria catheter in place. NEUROLOGIC: The patient is limited with regards to his neurological evaluation. He is demented, whi ch could be secondary to vascular causes or Lewy body dementia and certainly related to multiple scle rosis he has. He also has paranoid schizophrenia. IMPRESSION AND PLAN: The patient has multiple problems including osteomyelitis which was outlined pr eviously. He has osteomyelitis of the left femur and he probably has osteomyelitis of this left 5th distal metatarsal. He should be seen by podiatry and by surgery. We will continue him on his curren t regimen. As far as I can see is on vancomycin. He is on meropenem, vancomycin and Levaquin. Whil e he is on vancomycin and meropenem, he may have had the Levaquin 1 dose. I will dictate my findings to the hospitalist and to the aforementioned consultants. Dictated By: ALEX BLACK MD, JD/CODY Conf#: [id number] DID#: [id number] CC: JANENE BE MD;*[facility]*
--- NOTE | 2018-02-19 16:37 | NUR ---
PICC Insertion. Attended to pt in room 115 for peripherally inserted central catheter (PICC) insertion. Patient is disoriented & confused. Unable to sign consent, consent signed by sister. Procedure reviewed, family agreed to proceed. Signed consent on chart for PICC. LUE prepped with chlorhexidene, then maximum barrier drape applied. 5 FR double lumen Arrow Power PICC inserted into basilic vein, using U/S guidance and sterile technique. CXR performed; tip confirmed in CAJ. Sterile dressing applied. 47.5 cm in, zero out. Lot # [id number]. All guidewires removed & accounted for. Patient tolerated procedure well. Addendum: 02/19/18 at 1642 by ERICA LAST RN See next note for PICC adjustment.
--- NOTE | 2018-02-19 16:40 | NUR ---
PICC INSERTION AMENDMENT: XRAY report reviewed. Catheter retracted 4 cm as suggested.
[2018-02-19] MEDS ORDERED: INSULIN ASPART [NOVOLOG] 3 ML PEN SC SCH (17:05)
--- NOTE | 2018-02-19 18:48 | NUR ---
End of Shift Summary Pt. with baseline dementia, oriented to self only. Afebrile, Dilaudid given x 2 for generalized pain from multiple wounds. Remains sinus tach in 130s. Normotensive. Room air, slightly tachypneic but better than this morning. Carb controlled diet, better appetite today. AC/HS accuchecks. No BM. Chavarria catheter in place, urine output ~ 100 cc/hr. Multiple pressure injuries, turned Q2 hr, switched to [facility] bed. IVF at 150 cc/hr. PICC line placed. Plan for surgical consult regarding possible osteomyelitis, continue IV ABX.
--- NOTE | 2018-02-19 20:05 | NUR ---
Transfer Notes Transferred patient to Tele floor as ordered, report was given to OLIVIA Uribe. Patient was transferred in stable condition on the monitor. Notified pt's Mother Radha Martell of his transfer, his room number and all her questions addressed.
--- NOTE | 2018-02-19 22:14 | NUR ---
Pt bp 102/68, HR 145, temp 99.2. Notified Dr. Chawla. Normal saline 1 liter bolus ordered and started. Will recheck pts. temp in [address] Chawla.
[2018-02-19] MEDS: ESCITALOPRAM 10 MG TAB PO SCH (23:15)
[2018-02-19] MEDS ORDERED: LORAZEPAM 4 MG/ML VIAL ONE (23:54)
[2018-02-20] VITALS (10 sets, daily range): BP systolic 102–119; BP diastolic 56–71; PULSE 117–144; RESP 20–22
[2018-02-20] MEDS ORDERED: LORAZEPAM 4 MG/ML VIAL IV ONE
--- NOTE | 2018-02-20 01:01 | NUR ---
Pt temp 97.7, HR 143. Dr Chawla notified. Pt very agitated and anxious- Ativan 1mg x1 given per Dr. Chawla.
[2018-02-20] MEDS: ACCU-CHEK XX SCH (02:00)
[2018-02-20] MEDS: HEPARIN 5,000 UNIT/1 ML VIAL SC SCH ×4 (03:30→22:28)
--- NOTE | 2018-02-20 04:55 | NUR ---
Pt. HR 141. BP 105/56, Temp 98.5. Dr. Chawla notified and aware. Per Dr, Continue to monitor pt. As well as continue to give IV fluids. Give 500cc NS after 1000NS bag completed.
[2018-02-20] MEDS: SOD CHLORIDE 0.9% 1,000 ML IV SCH ×3 (04:58→17:28)
[2018-02-20] MEDS: PANTOPRAZOLE 40 MG INJ IV SCH (06:20)
--- NOTE | 2018-02-20 07:30 | NUR ---
RN UPDATE PT HAD LOW POTASSIUM LEVEL. K-3.0. MG NOT DRAWN. MD ORDERED KCL-40 MEQ KCL X 1 PO AND MAGNESIUM LEVEL;. WILL CONTINUE TO MONITOR.
[2018-02-20] MEDS ORDERED: POTASSIUM CHLORIDE (SR) 20 MEQ TAB PO STA (07:34)
--- NOTE | 2018-02-20 07:38 | NUR ---
Pt. a/o x1. Pt. heart rate in 140s upon my shift, Dr. Chawla notified and aware. Hourly rounding completed. Bed in lowest position. Turn pt Q2H. Addendum: 02/20/18 at 0828 by SARITHA VALDEZ RN unable to take weight on bed scale. endorsed to day shift nurse.
[2018-02-20] MEDS: INSULIN ASPART [NOVOLOG] 3 ML PEN SC SCH ×4 (08:00→21:00)
[2018-02-20] MEDS ORDERED: SOD CHLORIDE 0.9% 500 ML IV ONE (08:00)
[2018-02-20] MEDS: BACLOFEN 10 MG TAB PO SCH ×2 (08:06→20:44)
[2018-02-20] MEDS: OLANZAPINE 2.5 MG TAB PO SCH ×2 (08:12→20:43)
[2018-02-20] MEDS: DOCUSATE SODIUM 100 MG CAP PO SCH ×2 (08:12→20:43)
[2018-02-20] MEDS: AMANTADINE 100 MG CAP PO SCH ×2 (08:12→20:43)
[2018-02-20] MEDS: ASCORBIC ACID 500 MG TAB PO SCH ×2 (08:19→20:44)
[2018-02-20] MEDS: MEROPENEM 500MG/50 ML (PMX) 50 ML IVPB SCH ×2 (08:25→21:12)
[2018-02-20] MEDS: VANCOMYCIN 1 GM 250 ML IVPB SCH ×2 (09:21→20:45)
--- NOTE | 2018-02-20 09:30 | NUR ---
RN UPDATE NOTIFIED DR DIA REGARDING PATIENT POSITIVE FOR ESBL AND E COLI IN THE URINE. VITAL SIGNS WNL. NO FEVER. WAS CALLED AT HIS OFFICE. AWAITING FOR RESPONSE. Addendum: 02/20/18 at 1110 by ADEBAYO CABAN RN WINDY DIA AND GABI Alexandre3. CALLED UP HIS OFFICE AGAIN. AWAITING FOR RESPONSE Addendum: 02/20/18 at 1123 by ADEBAYO CABAN RN DARLENE ASHLEY CAME TO THE FLOOR. REPORTED THAT PATIENT IS POSITIVE FOR E COLI IN THE URINE. WBC TRENDED UP FROM 13.9 TO 29.6. SLITTER AND REWINDER STATES WILL TAKE A LOOK AT HIS LABS.
--- NOTE | 2018-02-20 11:27 | NUR ---
RX NOTE RE: VANCOMYCIN DAY #3 OF VANCOMYCIN PER RX BUN/SCR: 30/0.81 TMAX: 98.8 WBC: 29.6 ALLERGIES: NKDA OTHER ABX: MERREM VANCO RANDOM <5 RENAL FUNCTION IMPROVED. DOSE VANCOMYCIN 1GM IV Q12HR. PHARMACY TO FOLLOW AND ADJUST APPROPRIATE. THANKS!
--- NOTE | 2018-02-20 13:35 | CONS ---
Date/Time of Note Date/Time of Note DATE: 02/20/18 TIME: 13:34 Assessment/Plan Assessment/Plan Hospital Course Patient is lethargic in no distress no fevers overnight WBC 29.6 H&H 9 and 28.1 platelets 533 bands 10 BUN 30 creatinine 0.81 Microbiology: Blood culture growing gram-positive cocci in pair clusters and gram-negative rods, urine culture grew E. coli ESBL Antimicrobials: Vancomycin meropenem Indwelling: Chavarria catheter, PICC line Physical examination: Chronically ill-appearing elderly man who is in no d istress. Head atraumatic normocephalic sclera nonicteric. Neck is supple chest rise symmetrical breath sounds diminished bases. Heart: S1-S2. Abdomen soft bowel sounds present. Extremities contractured lower extremities with multiple necrotic wounds. Skin positive for anasarca unstageable multiple wounds Assessment: 1. Severe sepsis with shock on admission 2. Multiple unstageable decubitus with radiographic imaging of osteomyelitis of left femur and left foot 3. Polymicrobial bacteremia 4. Healthcare associated pneumonia, possibly aspiration 5. Acute kidney failure, possibly on chronic kidney disease 6. Bilateral hydronephrosis 7. Encephalopathy Plan: We are going to repeat blood cultures, continue on current antibiotics, consider surgical and podiatry evaluation, follow chest x-ray and cultures. Prognosis poor, consider CODE STATUS change Result Diagram: 02/20/18 0504 02/20/18 0504 Results 24hrs Laboratory Tests Test 02/19/18 16:44 02/20/18 01:28 02/20/18 05:04 02/20/18 08:00 Bedside Glucose 76 126 105 White Blood 29.6 #H Count Red Blood Count 3.95 #L Hemoglobin 9.0 #L Hematocrit 28.1 #L Mean Corpuscular 71.1 L Volume Mean Corpuscular 22.8 L Hemoglobin Mean Corpuscular 32.0 Hemoglobin Tamia nt Red Cell 18.6 H Distribution Width Platelet Count 533 H Mean Platelet 8.3 Volume Immature 2.100 H Granulocytes % Neutrophils % Segmented 88 H Neutrophils % (Manual) Band Neutrophils 10 H % (Manual) Lymphocytes % Monocytes % Monocytes % 2 (Manual) Eosinophils % Basophils % Nucleated Red 0.0 Blood Cells % Immature 0.620 H Granulocytes # Neutrophils # Neutrophils # 26.9 H (Manual) Band Neutrophils 2.9 H # Lymphocytes # Monocytes # Monocytes # 0.5 (Manual) Eosinophils # Basophils # Nucleated Red Blood Cells # Platelet INCREASED Estimate Poikilocytosis 3+ Anisocytosis 1+ Macrocytosis 1+ Sodium Level 140 Potassium Level 3.0 #L Chloride Level 109 Carbon Dioxide 19 L Level Anion Gap 12 Blood Urea 30 #H Nitrogen Creatinine 0.81 # Est Glomerular > 60 Filtrat Rate mL/min Glucose Level 115 Lactic Acid 1.1 Level Calcium Level 9.1 Magnesium Level 2.0 Total Bilirubin 0.0 L Direct Bilirubin 0.00 Indirect 0.0 Bilirubin Aspartate Amino 23 Transf (AST/SGOT ) Alanine 30 Aminotransferase (ALT/SGPT) Alkaline 153 H Phosphatase Total Protein 5.4 L Albumin 2.6 L Globulin 2.80 Albumin/Globulin 0.92 Ratio Random < 5.0 Vancomycin Level Test 02/20/18 11:50 Bedside Glucose 124 Consultation Date/Type/Reason Admit Date/Time Feb 18, 2018 at 21:44 Initial Consult Date Type of Consult ID Exam/Review of Systems Vital Signs Vitals Vital Signs Date Temp Pulse Resp B/P (MAP) Pulse Ox O2 O2 Flow FiO2 Time Delivery Rate 02/20/18 121 12:14 02/20/18 98.3 20 110/65 90 10:59 (80) 02/20/18 Nasal 2.0 07:30 Cannula Intake and Output 02/19/18 02/19/18 02/20/18 1515:00 23:00 07:00 IntakeIntake Total 1310 ml 510 ml 50 ml OutputOutput Total 885 ml 305 ml BalanceBalance 425 ml 205 ml 50 ml Medications Medications Current Medications Sodium Chloride 1,000 ml @ 150 mls/hr Q6H40M IV Last administered on 02/20/18at 10:50; Admin Dose 150 MLS/HR; Start 02/18/18 at 21:37 Ondansetron HCl (Zofran Inj) 4 mg Q6H PRN IV NAUSEA AND/OR VOMITING; Start 02/18/18 at 22:00 Albuterol (Proventil 0.083% (Neb)) 2.5 mg Q2H RESP THERAPY PRN NEB SHORTNESS OF BREATH; Start 02/18/18 at 22:00 Ipratropium [place] (Atrovent 0.02% (Neb)) 0.5 mg Q2H RESP THERAPY PRN NEB SHORTNESS OF BREATH; Start 02/18/18 at 22:00 Acetaminophen (Tylenol Liquid) 650 mg Q6H PRN PO PAIN LEVEL 1-3 OR FEVER; Start 02/18/18 at 22:00 Pantoprazole (Protonix Iv) 40 mg DAILY@06 IV Last administered on 02/20/18at 06:20; Admin Dose 40 MG; Start 02/19/18 at 06:00 Heparin Sodium (Porcine) (Heparin (5000 Units/1ml)) 5,000 unit Q8 SC Last administered on 02/20/18at 06:35; Admin Dose 5,000 UNIT; Start 02/18/18 at 22:00 Vancomycin HCl (Vanco Iv Per Pharmacy) VANCOMYCIN PER PHARMACY PER PROTOCOL XX ; Start 02/18/18 at 22:00 Amantadine HCl (Symmetrel) 100 mg BID PO Last administered on 02/20/18at 08:12; Admin Dose 100 MG; Start 02/19/18 at 09:00 Ascorbic Acid (Vitamin C) 500 mg BID PO Last administered on 02/20/18at 08:19; Admin Dose 500 MG; Start 02/19/18 at 09:00 Baclofen (Lioresal) 20 mg BID PO Last administered on 02/20/18at 08:06; Admin Dose 20 MG; Start 02/19/18 at 09:00 Bisacodyl (Dulcolax Supp) 10 mg Q24H [place] Last administered on 02/19/18at 00:56; Admin Dose 10 MG; Start 02/18/18 at 22:00 Docusate Sodium (Colace) 100 mg BID PO Last administered on 02/20/18at 08:12; Admin Dose 100 MG; Start 02/19/18 at 09:00 Escitalopram Oxalate (Lexapro) 10 mg QHS PO Last administered on 02/19/18at 23:15; Admin Dose 10 MG; Start 02/19/18 at 21:00 Olanzapine (Zyprexa) 2.5 mg BID PO Last administered on 02/20/18at 08:12; Admin Dose 2.5 MG; Start 02/19/18 at 09:00 Diagnostic Test (Pha) (Accu-Chek) 1 ea 02 XX Last administered on 02/19/18at 01:08; Admin Dose 1 EA; Start 02/19/18 at 02:00 Miscellaneous Information 1 ea NOTE XX ; Start 02/18/18 at 23:00 Glucose (Glutose) 15 gm Q15M PRN PO DECREASED GLUCOSE; Start 02/18/18 at 23:00 Glucose (Glutose) 22.5 gm Q15M PRN PO DECREASED GLUCOSE; Start 02/18/18 at 23:00 Dextrose (D50w Syringe) 25 ml Q15M PRN IV DECREASED GLUCOSE; Start 02/18/18 at 23:00 Dextrose (D50w Syringe) 50 ml Q15M PRN IV DECREASED GLUCOSE; Start 02/18/18 at 23:00 Glucagon (Glucagen) 1 mg Q15M PRN IM DECREASED GLUCOSE; Start 02/18/18 at 23:00 Glucose (Glutose) 15 gm Q15M PRN BUCCAL DECREASED GLUCOSE; Start 02/18/18 at 23:00 Meropenem/Sodium Chloride 50 ml @ 100 mls/hr Q12 IVPB Last administered on 02/20/18at 08:25; Admin Dose 100 MLS/HR; Start 02/19/18 at 02:00 Hydromorphone HCl (Dilaudid) 0.2 mg Q4H PRN IV SEVERE PAIN LEVEL 7-10 Last administered on 02/19/18at 23:12; Admin Dose 0.2 MG; Start 02/19/18 at 03:30 Insulin Aspart (Novolog Insulin Pen) NOVOLOG *MILD* ALGORITHM WITH MEALS BEDTIME SC ; Start 02/19/18 at 17:35 IV Flush (NS 10 ml) 10 ml BID IV Last administered on 02/20/18at 08:32; Admin Dose 10 ML; Start 02/19/18 at 21:00 Lorazepam (Ativan) 0.5 mg Q6H PRN IV AGITATION; Start 02/20/18 at 00:00 Vancomycin HCl 250 ml @ 125 mls/hr Q12H IVPB Last administered on 02/20/18at 09:21; Admin Dose 125 MLS/HR; Start 02/20/18 at 09:00 CALVIN MARSHALL NP Feb 20, 2018 13:35
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
[2018-02-20] MEDS: HYDROmorphONE 1 MG/ML SYG IV PRN (18:45)
--- NOTE | 2018-02-20 19:00 | NUR ---
RN UPDATE DR MEEKS DEBRIDED THE NECROTIC WOUNDS ON THE BILATERAL FOOT. ADMINISTERED PAIN RELIEVER PRIOR TO THE PROCEDURE. VITAL SIGNS WNL. AFEBRILE. NO SOB NOTED. PATIENT TOLERATED THE PROCEDURE WELL. MINIMAL BLOOD NOTED FROM THE DEBRIDED WOUNDS. MD APPLIED BETADINE ON THE WOUND AFTER THE PROCEDURE. WRAPPED BOTH FEET WITH KERLIX. CONSENT FOR THE PROCEDURE SIGNED BY THE PATIENT'S SISTER. EXPLAINED TO THE FAMILY MEMBER ABOUT THE DEBRIDEMENT. SHE VERBALIZED UNDERSTANDING. OBTAINED WOUND CULTURE ON WOUNDS FROM BOTH FEET. ENDORSED PATIENT TO THE NEXT SHIFT.
[2018-02-20] MEDS: ESCITALOPRAM 10 MG TAB PO SCH (20:43)
--- NOTE | 2018-02-20 21:29 | CONS ---
Date/Time of Note Date/Time of Note DATE: 02/20/18 TIME: 21:28 Assessment/Plan Assessment/Plan Assessment/Plan 1) b/l decubitus foot ulcers stage 3 2) Rigid knee contractures 3) Cellulitis 4) Hx of CVA 5) Left foot digit extensus deformity 6) Bed bound 7) Sepsis 2/2 to UTI w/ ESBL e.coli 8) Leukocytosis Plan: Discussed with sister and obtained consent and performed b/l lower extremity excisional debridement of skin/subQ/muscle/fascia. Using a bean picker machine operator and scissor necrotic eschar, fibrotic tissue, and biofilm was removed from the wound sites. Greater than 60cm2 of area was debrided. Copious saline irrigation and dressed with 4x4 betadine gauze and kerlix. Wound cultures obtained. Recommend offloading with pillows and heel protectors. Patient in appropriate offloading hospital bed. Continue with IV abx as per ID recommendations. Medical decisions, treatment, and plan coordinated with Dr. Urban. Result Diagram: 02/20/18 0504 02/20/18 0504 Results 24hrs Laboratory Tests Test 02/20/18 01:28 02/20/18 05:04 02/20/18 08:00 02/20/18 11:50 Bedside Glucose 126 105 124 White Blood 29.6 #H Count Red Blood Count 3.95 #L Hemoglobin 9.0 #L Hematocrit 28.1 #L Mean Corpuscular 71.1 L Volume Mean Corpuscular 22.8 L Hemoglobin Mean Corpuscular 32.0 Hemoglobin Tamia nt Red Cell 18.6 H Distribution Width Platelet Count 533 H Mean Platelet 8.3 Volume Immature 2.100 H Granulocytes % Neutrophils % Segmented 88 H Neutrophils % (Manual) Band Neutrophils 10 H % (Manual) Lymphocytes % Monocytes % Monocytes % 2 (Manual) Eosinophils % Basophils % Nucleated Red 0.0 Blood Cells % Immature 0.620 H Granulocytes # Neutrophils # Neutrophils # 26.9 H (Manual) Band Neutrophils 2.9 H # Lymphocytes # Monocytes # Monocytes # 0.5 (Manual) Eosinophils # Basophils # Nucleated Red Blood Cells # Platelet INCREASED Estimate Poikilocytosis 3+ Anisocytosis 1+ Macrocytosis 1+ Sodium Level 140 Potassium Level 3.0 #L Chloride Level 109 Carbon Dioxide 19 L Level Anion Gap 12 Blood Urea 30 #H Nitrogen Creatinine 0.81 # Est Glomerular > 60 Filtrat Rate mL/min Glucose Level 115 Lactic Acid 1.1 Level Calcium Level 9.1 Magnesium Level 2.0 Total Bilirubin 0.0 L Direct Bilirubin 0.00 Indirect 0.0 Bilirubin Aspartate Amino 23 Transf (AST/SGOT ) Alanine 30 Aminotransferase (ALT/SGPT) Alkaline 153 H Phosphatase Total Protein 5.4 L Albumin 2.6 L Globulin 2.80 Albumin/Globulin 0.92 Ratio Random < 5.0 Vancomycin Level Test 02/20/18 17:18 02/20/18 20:50 Bedside Glucose 93 110 Consultation Date/Type/Reason Admit Date/Time Feb 18, 2018 at 21:44 Hx of Present Illness 52 y/o M patient with hx of multiple sclerosis and who is bed bound presents to the floor with multiple pressure wounds to the feet. Patient complains of generalized weakness but denies shortness of breath, chest pain or palpitations. Abdominal pain, nausea vomiting. Fever at [facility] was apparently 100.5 degrees. Patient himself is also reporting pain in his back and the buttocks area. He was accompanied by his sister who was able to provide further history. Sister reports that she noticed him feeling weak and he was sweating and he was confused in the last time this that happened he was diagnosed with urinary tract infection. The sister reports that approximately for the last 1 year or so patient has been slowly deteriorating. She has noticed that his behavior has become aggressive and he also has become more paranoid. 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 He has been in and out of hospitals and he was currently staying at the group home facility. She notes that he has had problems with his memory as well and he has been diagnosed with dementia. He was given a diagnosis of multiple sclerosis however his MRIs have been negative. He has progressively gotten worse in his mobility and initially was on a cane and then progressed to a walker with him recently not being able to be mobile. Patient was supposed to see neurology however the sister states that they have been unsuccessful in obtaining a consultation for further workup. ROS Const: As per HPI Eyes : No pain discharge or redness or change in visual acuity ENT: No pain, sore throat, congestion, congestion, dysphagia or discharge Respiratory: No shortness of breath, cough, sputum, wheezing, or pleuritic pain Cardiovascular: No chest pain, palpitation, PND, or edema GI : no change in appetite, abdominal pain, nausea, vomiting, diarrhea, constipation, or change in the color his stool Genitourinary: No dysuria, hematuria, flank pain , discharge or CVA tenderness Musculoskeletal: As per HPI Skin: As per HPI Neuro: No headache, dizziness, syncope, seizure, focal weakness Endocrine: No polyuria, polydipsia, temperature intolerance Psych: No hallucination, depression, anxiety or suicidal ideation Past Medical History multiple sclerosis, CVA, dementia, bed bound Medications Current Medications Ondansetron HCl (Zofran Inj) 4 mg Q6H PRN IV NAUSEA AND/OR VOMITING; Start 02/18/18 at 22:00 Albuterol (Proventil 0.083% (Neb)) 2.5 mg Q2H RESP THERAPY PRN NEB SHORTNESS OF BREATH; Start 02/18/18 at 22:00 Ipratropium [place] (Atrovent 0.02% (Neb)) 0.5 mg Q2H RESP THERAPY PRN NEB SHORTNESS OF BREATH; Start 02/18/18 at 22:00 Acetaminophen (Tylenol Liquid) 650 mg Q6H PRN PO PAIN LEVEL 1-3 OR FEVER; Start 02/18/18 at 22:00 Pantoprazole (Protonix Iv) 40 mg DAILY@06 IV Last administered on 02/20/18at 06:20; Admin Dose 40 MG; Start 02/19/18 at 06:00 Heparin Sodium (Porcine) (Heparin (5000 Units/1ml)) 5,000 unit Q8 SC Last administered on 02/20/18at 17:24; Admin Dose 5,000 UNIT; Start 02/18/18 at 22:00 Vancomycin HCl (Vanco Iv Per Pharmacy) VANCOMYCIN PER PHARMACY PER PROTOCOL XX ; Start 02/18/18 at 22:00 Amantadine HCl (Symmetrel) 100 mg BID PO Last administered on 02/20/18at 20:43; Admin Dose 100 MG; Start 02/19/18 at 09:00 Ascorbic Acid (Vitamin C) 500 mg BID PO Last administered on 02/20/18at 20:44; Admin Dose 500 MG; Start 02/19/18 at 09:00 Baclofen (Lioresal) 20 mg BID PO Last administered on 02/20/18at 20:44; Admin Dose 20 MG; Start 02/19/18 at 09:00 Bisacodyl (Dulcolax Supp) 10 mg Q24H [place] Last administered on 02/19/18at 00:56; Admin Dose 10 MG; Start 02/18/18 at 22:00 Docusate Sodium (Colace) 100 mg BID PO Last administered on 02/20/18at 20:43; Admin Dose 100 MG; Start 02/19/18 at 09:00 Escitalopram Oxalate (Lexapro) 10 mg QHS PO Last administered on 02/20/18at 20:43; Admin Dose 10 MG; Start 02/19/18 at 21:00 Olanzapine (Zyprexa) 2.5 mg BID PO Last administered on 02/20/18at 20:43; Admin Dose 2.5 MG; Start 02/19/18 at 09:00 Diagnostic Test (Pha) (Accu-Chek) 1 ea 02 XX Last administered on 02/19/18at 01:08; Admin Dose 1 EA; Start 02/19/18 at 02:00 Miscellaneous Information 1 ea NOTE XX ; Start 02/18/18 at 23:00 Glucose (Glutose) 15 gm Q15M PRN PO DECREASED GLUCOSE; Start 02/18/18 at 23:00 Glucose (Glutose) 22.5 gm Q15M PRN PO DECREASED GLUCOSE; Start 02/18/18 at 23:00 Dextrose (D50w Syringe) 25 ml Q15M PRN IV DECREASED GLUCOSE; Start 02/18/18 at 23:00 Dextrose (D50w Syringe) 50 ml Q15M PRN IV DECREASED GLUCOSE; Start 02/18/18 at 23:00 Glucagon (Glucagen) 1 mg Q15M PRN IM DECREASED GLUCOSE; Start 02/18/18 at 23:00 Glucose (Glutose) 15 gm Q15M PRN BUCCAL DECREASED GLUCOSE; Start 02/18/18 at 23:00 Meropenem/Sodium Chloride 50 ml @ 100 mls/hr Q12 IVPB Last administered on 02/20/18at 21:12; Admin Dose 100 MLS/HR; Start 02/19/18 at 02:00 Hydromorphone HCl (Dilaudid) 0.2 mg Q4H PRN IV SEVERE PAIN LEVEL 7-10 Last administered on 02/20/18at 18:45; Admin Dose 0.2 MG; Start 02/19/18 at 03:30 Insulin Aspart (Novolog Insulin Pen) NOVOLOG *MILD* ALGORITHM WITH MEALS BEDTIME SC ; Start 02/19/18 at 17:35 IV Flush (NS 10 ml) 10 ml BID IV Last administered on 02/20/18at 21:13; Admin Dose 10 ML; Start 02/19/18 at 21:00 Lorazepam (Ativan) 0.5 mg Q6H PRN IV AGITATION; Start 02/20/18 at 00:00 Vancomycin HCl 250 ml @ 125 mls/hr Q12H IVPB Last administered on 02/20/18at 20:45; Admin Dose 125 MLS/HR; Start 02/20/18 at 09:00 Allergies: Coded Allergies: No Known Allergy (Unverified , 02/18/18) Past Surgical History Past Surgical Hx: no surgical history Family History Significant Family History: no pertinent family hx Social History Alcohol Use: none Smoking Status: Former smoker Exam/Review of Systems Vital Signs Vitals Vital Signs Date Temp Pulse Resp B/P (MAP) Pulse Ox O2 O2 Flow FiO2 Time Delivery Rate 02/20/18 98.2 121 20 118/62 96 Room Air 2.0 20:00 (80) Nasal Cannula Intake and Output 02/19/18 02/19/18 02/20/18 1515:00 23:00 07:00 IntakeIntake Total 1310 ml 510 ml 50 ml OutputOutput Total 885 ml 305 ml BalanceBalance 425 ml 205 ml 50 ml Exam DP pulses palpable unable to palpate PT pulses Rigid knee contractures Left 5th digit in semi-reducible extensus Left foot lateral ulceration with necrotic eschar measures 8 x 2.5 x 0.3cm with mixed fibrogranular wound base upon post debridement no purulence noted, unable to probe to bone no proximal streaking. Left posterior heel ulcer mixed fibrotic and necrotic with some granulation tissue to the wound base measuring 2.5 x 3 x 0.3cm. Unable to probe to bone, no proximal streaking, no purulence noted. Left medial 1st MPJ ulceration sited mixed granular and necrotic wound bed measuring 2.5 x 1.5 x 0.3cm. Unable to probe to bone no purulence noted no proximal streaking Right lateral foot ulceration site with necrotic eschar cap and upon post debridement measuring 7 x 2.2 x 0.3cm with mixed fibrogranular wound base upon post debridement no purulence noted, unable to probe to bone no proximal streaking. Absent protective sensations Unable to assess muscle strength skin temperature gradient warm to warm from proximal leg to distal feet. Medications Medications Current Medications Ondansetron HCl (Zofran Inj) 4 mg Q6H PRN IV NAUSEA AND/OR VOMITING; Start 02/18/18 at 22:00 Albuterol (Proventil 0.083% (Neb)) 2.5 mg Q2H RESP THERAPY PRN NEB SHORTNESS OF BREATH; Start 02/18/18 at 22:00 Ipratropium [place] (Atrovent 0.02% (Neb)) 0.5 mg Q2H RESP THERAPY PRN NEB SHORTNESS OF BREATH; Start 02/18/18 at 22:00 Acetaminophen (Tylenol Liquid) 650 mg Q6H PRN PO PAIN LEVEL 1-3 OR FEVER; Start 02/18/18 at 22:00 Pantoprazole (Protonix Iv) 40 mg DAILY@06 IV Last administered on 02/20/18at 06:20; Admin Dose 40 MG; Start 02/19/18 at 06:00 Heparin Sodium (Porcine) (Heparin (5000 Units/1ml)) 5,000 unit Q8 SC Last administered on 02/20/18at 17:24; Admin Dose 5,000 UNIT; Start 02/18/18 at 22:00 Vancomycin HCl (Vanco Iv Per Pharmacy) VANCOMYCIN PER PHARMACY PER PROTOCOL XX ; Start 02/18/18 at 22:00 Amantadine HCl (Symmetrel) 100 mg BID PO Last administered on 02/20/18at 20:43; Admin Dose 100 MG; Start 02/19/18 at 09:00 Ascorbic Acid (Vitamin C) 500 mg BID PO Last administered on 02/20/18at 20:44; Admin Dose 500 MG; Start 02/19/18 at 09:00 Baclofen (Lioresal) 20 mg BID PO Last administered on 02/20/18at 20:44; Admin Dose 20 MG; Start 02/19/18 at 09:00 Bisacodyl (Dulcolax Supp) 10 mg Q24H [place] Last administered on 02/19/18at 00:56; Admin Dose 10 MG; Start 02/18/18 at 22:00 Docusate Sodium (Colace) 100 mg BID PO Last administered on 02/20/18at 20:43; Admin Dose 100 MG; Start 02/19/18 at 09:00 Escitalopram Oxalate (Lexapro) 10 mg QHS PO Last administered on 02/20/18at 20:43; Admin Dose 10 MG; Start 02/19/18 at 21:00 Olanzapine (Zyprexa) 2.5 mg BID PO Last administered on 02/20/18at 20:43; Admin Dose 2.5 MG; Start 02/19/18 at 09:00 Diagnostic Test (Pha) (Accu-Chek) 1 ea 02 XX Last administered on 02/19/18at 01:08; Admin Dose 1 EA; Start 02/19/18 at 02:00 Miscellaneous Information 1 ea NOTE XX ; Start 02/18/18 at 23:00 Glucose (Glutose) 15 gm Q15M PRN PO DECREASED GLUCOSE; Start 02/18/18 at 23:00 Glucose (Glutose) 22.5 gm Q15M PRN PO DECREASED GLUCOSE; Start 02/18/18 at 23:00 Dextrose (D50w Syringe) 25 ml Q15M PRN IV DECREASED GLUCOSE; Start 02/18/18 at 23:00 Dextrose (D50w Syringe) 50 ml Q15M PRN IV DECREASED GLUCOSE; Start 02/18/18 at 23:00 Glucagon (Glucagen) 1 mg Q15M PRN IM DECREASED GLUCOSE; Start 02/18/18 at 23:00 Glucose (Glutose) 15 gm Q15M PRN BUCCAL DECREASED GLUCOSE; Start 02/18/18 at 23:00 Meropenem/Sodium Chloride 50 ml @ 100 mls/hr Q12 IVPB Last administered on 02/20/18at 21:12; Admin Dose 100 MLS/HR; Start 02/19/18 at 02:00 Hydromorphone HCl (Dilaudid) 0.2 mg Q4H PRN IV SEVERE PAIN LEVEL 7-10 Last adm inistered on 02/20/18at 18:45; Admin Dose 0.2 MG; Start 02/19/18 at 03:30 Insulin Aspart (Novolog Insulin Pen) NOVOLOG *MILD* ALGORITHM WITH MEALS BEDTIME SC ; Start 02/19/18 at 17:35 IV Flush (NS 10 ml) 10 ml BID IV Last administered on 02/20/18at 21:13; Admin Dose 10 ML; Start 02/19/18 at 21:00 Lorazepam (Ativan) 0.5 mg Q6H PRN IV AGITATION; Start 02/20/18 at 00:00 Vancomycin HCl 250 ml @ 125 mls/hr Q12H IVPB Last administered on 02/20/18at 20:45; Admin Dose 125 MLS/HR; Start 02/20/18 at 09:00 RAYSHAWN MEEKS DPM Feb 20, 2018 21:29
[2018-02-20] MEDS: BISACODYL 10 MG SUPP PR SCH (22:19)
[2018-02-21] VITALS (10 sets, daily range): BP systolic 107–126; BP diastolic 61–80; PULSE 85–122; RESP 18–20
[2018-02-21] MEDS: HYDROmorphONE 1 MG/ML SYG IV PRN (00:28)
[2018-02-21] MEDS: ACCU-CHEK XX SCH (02:00)
[2018-02-21] MEDS: LORAZEPAM 4 MG/ML VIAL IV PRN ×2 (03:44→20:40)
[2018-02-21] MEDS: PANTOPRAZOLE 40 MG INJ IV SCH (05:23)
[2018-02-21] MEDS: HEPARIN 5,000 UNIT/1 ML VIAL SC SCH ×3 (05:39→21:17)
--- NOTE | 2018-02-21 07:51 | NUR ---
Pt a/o x1. Hourly rounding completed. Bed in lowest position. Pt turned Q2H. Will endorse continuity of care to day shift.
[2018-02-21] MEDS: INSULIN ASPART [NOVOLOG] 3 ML PEN SC SCH ×4 (07:59→21:00)
[2018-02-21] MEDS: SODIUM HYPOCHLORITE (1/40) 1 APPLIC BTL IRR SCH (09:00)
[2018-02-21] MEDS: VANCOMYCIN 1 GM 250 ML IVPB SCH ×2 (09:25→21:31)
[2018-02-21] MEDS: MEROPENEM 500MG/50 ML (PMX) 50 ML IVPB SCH (09:28)
[2018-02-21] MEDS: ASCORBIC ACID 500 MG TAB PO SCH ×2 (09:34→21:11)
[2018-02-21] MEDS: OLANZAPINE 2.5 MG TAB PO SCH ×2 (09:34→21:11)
[2018-02-21] MEDS: AMANTADINE 100 MG CAP PO SCH ×2 (09:34→21:11)
[2018-02-21] MEDS: BACLOFEN 10 MG TAB PO SCH ×2 (09:35→21:11)
[2018-02-21] MEDS: DOCUSATE SODIUM 100 MG CAP PO SCH ×2 (09:35→21:11)
--- NOTE | 2018-02-21 12:29 | NUR ---
Nutrition Consult Consult regarding wound healing was ordered. Recommend vitamin C 500mg daily, MVI daily, and zinc 220mg daily X 10days. Will be sending Boost glu TID and Rainer BID. Per daughter, patient has a history of poor appetite. May need a PEG placement to meet estimated anatoliy/pro needs. Thank you!
[2018-02-21] MEDS: POTASSIUM CHLORIDE 100 ML IVPB SCH ×4 (13:46→20:47)
--- NOTE | 2018-02-21 14:35 | CONS ---
Date/Time of Note Date/Time of Note DATE: 02/21/18 TIME: 14:33 Assessment/Plan Assessment/Plan Hospital Course No acute events overnight patient is lethargic in no distress WBC 25.9 H&H 8.6 and 27.8 platelets 427 neutrophils 87 BUN 16 creatinine 0.50 Diagnostics: Chest x-ray this morning revealed infiltrates in both lung bases greater on the left moderately distended with air stomach Microbiology: Blood culture on admission grew E. coli ESBL and coag negative staph species, urine culture also growing E. coli ESBL Antimicrobials: Vancomycin meropenem Indwelling: Chavarria catheter, PICC line Physical examination: Chronically ill-appearing elderly man who is in no distress. Head atraumatic normocephalic sclera nonicteric. Neck is supple chest rise symmetrical breath sounds diminished bases. Heart: S1-S2. Abdomen soft bowel sounds present. Extremities contractured lower extremities with multiple necrotic wounds. Skin positive for anasarca unstageable multiple wounds Assessment: 1. Severe sepsis with shock on admission 2. Multiple unstageable decubitus with radiographic imaging of osteomyelitis of left femur and left foot 3. Polymicrobial bacteremia 4. Healthcare associated pneumonia, possibly aspiration 5. Acute kidney failure, possibly on chronic kidney disease 6. Bilateral hydronephrosis 7. Encephalopathy Plan: Clinically unchanged, pending repeat blood cultures, continue antibiotics and local wound care Result Diagram: 02/21/18 1036 02/21/18 1036 Results 24hrs Laboratory Tests Test 02/20/18 17:18 02/20/18 20:50 02/21/18 07:59 02/21/18 10:36 Bedside Glucose 93 110 74 White Blood 25.9 H Count Red Blood Count 3.84 L Hemoglobin 8.6 L Hematocrit 27.8 L Mean Corpuscular 72.4 L Volume Mean Corpuscular 22.4 L Hemoglobin Mean Corpuscular 30.9 L Hemoglobin Tamia nt Red Cell 19.4 H Distribution Width Platelet Count 427 H Mean Platelet 8.5 Volume Immature 1.200 H Granulocytes % Neutrophils % Segmented 87 H Neutrophils % (Manual) Band Neutrophils 4 % (Manual) Lymphocytes % Lymphocytes % 5 L (Manual) Reactive 2 H Lymphocytes % (Manual) Monocytes % Monocytes % 2 (Manual) Eosinophils % Basophils % Nucleated Red 0.0 Blood Cells % Immature 0.320 H Granulocytes # Neutrophils # Neutrophils # 22.8 H (Manual) Band Neutrophils 1.0 H # Lymphocytes 1.2 (Manual) Lymphocytes # Reactive 0.5 H Lymphocytes # Monocytes # Monocytes # 0.5 (Manual) Eosinophils # Basophils # Nucleated Red Blood Cells # Platelet NORMAL Estimate Polychromasia 1+ Poikilocytosis 1+ Anisocytosis 1+ Microcytosis 1+ Macrocytosis 1+ Target Cells 1+ Ovalocytes 1+ Sodium Level 145 H Potassium Level 2.6 *L Chloride Level 116 H Carbon Dioxide 21 Level Anion Gap 8 Blood Urea 16 # Nitrogen Creatinine 0.50 L Est Glomerular > 60 Filtrat Rate mL/min Glucose Level 86 Calcium Level 9.2 Total Bilirubin 0.1 L Direct Bilirubin 0.00 Indirect 0.1 Bilirubin Aspartate Amino 50 #H Transf (AST/SGOT ) Alanine 33 Aminotransferase (ALT/SGPT) Alkaline 158 H Phosphatase Total Protein 5.2 L Albumin 2.3 L Globulin 2.90 Albumin/Globulin 0.79 Ratio Test 02/21/18 12:11 Bedside Glucose 94 Consultation Date/Type/Reason Admit Date/Time Feb 18, 2018 at 21:44 Initial Consult Date Type of Consult ID Exam/Review of Systems Vital Signs Vitals Vital Signs Date Temp Pulse Resp B/P (MAP) Pulse Ox O2 O2 Flow FiO2 Time Delivery Rate 02/21/18 97.8 96 18 126/80 96 Nasal 11:44 (95) Cannula 02/21/18 2.0 09:30 Intake and Output 02/20/18 02/20/18 02/21/18 1515:00 23:00 07:00 IntakeIntake Total 1360 ml 1000 ml 350 ml OutputOutput Total 1200 ml BalanceBalance 160 ml 1000 ml 350 ml Medications Medications Current Medications Ondansetron HCl (Zofran Inj) 4 mg Q6H PRN IV NAUSEA AND/OR VOMITING; Start 02/18/18 at 22:00 Albuterol (Proventil 0.083% (Neb)) 2.5 mg Q2H RESP THERAPY PRN NEB SHORTNESS OF BREATH; Start 02/18/18 at 22:00 Ipratropium [place] (Atrovent 0.02% (Neb)) 0.5 mg Q2H RESP THERAPY PRN NEB SHORTNESS OF BREATH; Start 02/18/18 at 22:00 Acetaminophen (Tylenol Liquid) 650 mg Q6H PRN PO PAIN LEVEL 1-3 OR FEVER; Start 02/18/18 at 22:00 Heparin Sodium (Porcine) (Heparin (5000 Units/1ml)) 5,000 unit Q8 SC Last administered on 02/21/18at 05:39; Admin Dose 5,000 UNIT; Start 02/18/18 at 22:00 Vancomycin HCl (Vanco Iv Per Pharmacy) VANCOMYCIN PER PHARMACY PER PROTOCOL XX ; Start 02/18/18 at 22:00 Amantadine HCl (Symmetrel) 100 mg BID PO Last administered on 02/21/18at 09:34; Admin Dose 100 MG; Start 02/19/18 at 09:00 Ascorbic Acid (Vitamin C) 500 mg BID PO Last administered on 02/21/18 09:34; Admin Dose 500 MG; Start 02/19/18 at 09:00 Baclofen (Lioresal) 20 mg BID PO Last administered on 02/21/18at 09:35; Admin Dose 20 MG; Start 02/19/18 at 09:00 Bisacodyl (Dulcolax Supp) 10 mg Q24H [place] Last administered on 02/20/18at 22:19; Admin Dose 10 MG; Start 02/18/18 at 22:00 Docusate Sodium (Colace) 100 mg BID PO Last administered on 02/21/18at 09:35; Admin Dose 100 MG; Start 02/19/18 at 09:00 Escitalopram Oxalate (Lexapro) 10 mg QHS PO Last administered on 02/20/18at 20:43; Admin Dose 10 MG; Start 02/19/18 at 21:00 Olanzapine (Zyprexa) 2.5 mg BID PO Last administered on 02/21/18 09:34; Admin Dose 2.5 MG; Start 02/19/18 at 09:00 Diagnostic Test (Pha) (Accu-Chek) 1 ea 02 XX Last administered on 02/19/18at 01:08; Admin Dose 1 EA; Start 02/19/18 at 02:00 Miscellaneous Information 1 ea NOTE XX ; Start 02/18/18 at 23:00 Glucose (Glutose) 15 gm Q15M PRN PO DECREASED GLUCOSE; Start 02/18/18 at 23:00 Glucose (Glutose) 22.5 gm Q15M PRN PO DECREASED GLUCOSE; Start 02/18/18 at 23:00 Dextrose (D50w Syringe) 25 ml Q15M PRN IV DECREASED GLUCOSE; Start 02/18/18 at 23:00 Dextrose (D50w Syringe) 50 ml Q15M PRN IV DECREASED GLUCOSE; Start 02/18/18 at 23:00 Glucagon (Glucagen) 1 mg Q15M PRN IM DECREASED GLUCOSE; Start 02/18/18 at 23:00 Glucose (Glutose) 15 gm Q15M PRN BUCCAL DECREASED GLUCOSE; Start 02/18/18 at 23:00 Meropenem/Sodium Chloride 50 ml @ 100 mls/hr Q12 IVPB Last administered on 02/21/18at 09:28; Admin Dose 100 MLS/HR; Start 02/19/18 at 02:00 Hydromorphone HCl (Dilaudid) 0.2 mg Q4H PRN IV SEVERE PAIN LEVEL 7-10 Last administered on 02/21/18at 00:28; Admin Dose 0.2 MG; Start 02/19/18 at 03:30 Insulin Aspart (Novolog Insulin Pen) NOVOLOG *MILD* ALGORITHM WITH MEALS BEDTIME SC ; Start 02/19/18 at 17:35 IV Flush (NS 10 ml) 10 ml BID IV Last administered on 02/21/18at 09:41; Admin Dose 10 ML; Start 02/19/18 at 21:00 Lorazepam (Ativan) 0.5 mg Q6H PRN IV AGITATION Last administered on 02/21/18at 03:44; Admin Dose 0.5 MG; Start 02/20/18 at 00:00 Vancomycin HCl 250 ml @ 125 mls/hr Q12H IVPB Last administered on 02/21/18at 09:25; Admin Dose 125 MLS/HR; Start 02/20/18 at 09:00 Sodium Hypochlorite (Dakin'S (Dilute )) 1 applic DAILY IRR ; Start 02/21/18 at 09:00 Potassium Chloride 100 ml @ 50 mls/hr Q2H IVPB Last administered on 02/21/18at 13:46; Admin Dose 50 MLS/HR; Start 02/21/18 at 12:30; Stop 02/21/18 at 20:29 Miscellaneous Information (*Rx Drug Level Order Reminder*) VANCO TR AT 2,000 ONCE ONCE XX ; Start 02/21/18 at 20:00; Stop 02/21/18 at 20:01 CALVIN MARSHALL NP Feb 21, 2018 14:35
--- NOTE | 2018-02-21 15:20 | NUR ---
CM NOTE CM S/W PATIENT SISTER,MS AGUILAR EARLIER THIS AM IN REGARD TO NOT WANTING PT TO RETURN TO SNF ([facility]) CM CONTACTED [facility] AND MADE [place] AWARE AND PER [place], SHE WILL CONTACT FAMILY TO SEE HOW THEY CAN IMPROVE, CM ALSO S/W YUE AND PER YUE PT HAS NO MEDICARE DAYS LEFT FOR SNF, [facility] STAYED THAT PT IS ON A BED HOLD AND WILL ACCEPT PT BACK IF FAMILY CHANGES THEIR MIND. AT THIS TIME PT HAS AN ORDER FOR HOSPICE AND S/W [facility] WILL BE MADE AWARE. OLIVA ALSO S/W THE SISTER AND SHE STATED THAT AT THIS TIME THE PLAN IS FOR HOSPICE. OLIVA WILL FOLLOW UP WITH [facility] AND WILL REMAIN AVAILABLE. MS AGUILAR [phone]
--- NOTE | 2018-02-21 16:17 | NUR ---
SW: CONSULTATION SW was consulted to discuss hospice with patient's family. [facility] called and spoke with patient's surrogate spokesperson/ his sister Ann [phone]. She stated that patient was at [facility], and states that they are interested in exploring to see if there are any other facilities closer to their current place of residency. She states that she is interested in hospice for this patient. States that she is patient's DPOA. [facility] called [facility] ([phone]), and they stated they were unable to find the paperwork in the chart but will ask for medical records department to check in paper chart. SW will f/u tomorrow with [facility] to request a copy. Ann states that she is receptive to making a referral to a hospice agency that is contracted with [facility], so they can try to find an alternative placement, but can go to [facility] incase no other placement is found. SW will f/u tomorrow. SW remains available as needed. No referrals have been made at this time. According to [facility], they are contracted with the following 3 hospice agencies: [facility], [facility] ([phone]) and [facility] ([phone]).
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
[2018-02-21] MEDS: PIPER-TAZO 3.375 GM IV (PMX) 100 ML IVPB SCH (17:50)
[2018-02-21] MEDS: ESCITALOPRAM 10 MG TAB PO SCH (21:11)
[2018-02-21] MEDS: BISACODYL 10 MG SUPP PR SCH (21:11)
[2018-02-22] VITALS (10 sets, daily range): BP systolic 111–140; BP diastolic 62–82; PULSE 18–148; RESP 17–20
[2018-02-22] MEDS: ACCU-CHEK XX SCH (02:00)
[2018-02-22] MEDS: PIPER-TAZO 3.375 GM IV (PMX) 100 ML IVPB SCH ×2 (02:18→06:00)
--- NOTE | 2018-02-22 02:28 | NUR ---
Called by RN to see patient. Patients clinical situation changed. Agonal respirations with grunting RR 40, HR 152, BP 131/82, saturation 83% on 2lpm n/c. Patient immediately placed on 100% NRBM. Respiratory treatments not given in face of tachycardia @ 150's and immediate need for oxygen. RN present @ athis time.
[2018-02-22] MEDS ORDERED: LEVALBUTEROL (NEB) 1.25 MG/0.5 ML AMP HHN PRN (03:00)
[2018-02-22] MEDS: LORAZEPAM 4 MG/ML VIAL IV PRN (04:35)
[2018-02-22] MEDS ORDERED: SOD CHLORIDE 0.9% 1,000 ML IV ONE (05:00)
[2018-02-22] MEDS: HEPARIN 5,000 UNIT/1 ML VIAL SC SCH (07:00)
--- NOTE | 2018-02-22 07:30 | CONS ---
Date/Time of Note Date/Time of Note DATE: 02/22/18 TIME: 07:29 Assessment/Plan Assessment/Plan Assessment/Plan Neuro degenerative's order status post CVA x3 declining mental status And only being worked up at this time with patient's overall prognosis appears to be extremely poor during his hospitalization will contact family members now. Sepsis syndrome CHANA REsFalure F Failure to thrive Prognosis poor Probably will not survive this hospitalization Will contact family now Suggest in house hospice Result Diagram: 02/21/18 1036 02/21/18 1036 Results 24hrs Laboratory Tests Test 02/21/18 07:59 02/21/18 10:36 02/21/18 12:11 02/21/18 17:47 Bedside Glucose 74 94 95 White Blood 25.9 H Count Red Blood Count 3.84 L Hemoglobin 8.6 L Hematocrit 27.8 L Mean 72.4 L Corpuscular Volume Mean 22.4 L Corpuscular Hemoglobin Mean 30.9 L Corpuscular Hemoglobin Conc ent Red Cell 19.4 H Distribution Width Platelet Count 427 H Mean Platelet 8.5 Volume Immature 1.200 H Granulocytes % Neutrophils % Segmented 87 H Neutrophils % (Manual) Band 4 Neutrophils % (Manual) Lymphocytes % Lymphocytes % 5 L (Manual) Reactive 2 H Lymphocytes % (Manual) Monocytes % Monocytes % 2 (Manual) Eosinophils % Basophils % Nucleated Red 0.0 Blood Cells % Immature 0.320 H Granulocytes # Neutrophils # Neutrophils # 22.8 H (Manual) Band 1.0 H Neutrophils # Lymphocytes 1.2 (Manual) Lymphocytes # Reactive 0.5 H Lymphocytes # Monocytes # Monocytes # 0.5 (Manual) Eosinophils # Basophils # Nucleated Red Blood Cells # Platelet NORMAL Estimate Polychromasia 1+ Poikilocytosis 1+ Anisocytosis 1+ Microcytosis 1+ Macrocytosis 1+ Target Cells 1+ Ovalocytes 1+ Sodium Level 145 H Potassium Level 2.6 *L Chloride Level 116 H Carbon Dioxide 21 Level Anion Gap 8 Blood Urea 16 # Nitrogen Creatinine 0.50 L Est Glomerular > 60 Filtrat Rate mL/min Glucose Level 86 Calcium Level 9.2 Total Bilirubin 0.1 L Direct 0.00 Bilirubin Indirect 0.1 Bilirubin Aspartate Amino 50 #H Transf (AST/SGO T) Alanine 33 Aminotransferas e (ALT/SGPT) Alkaline 158 H Phosphatase Total Protein 5.2 L Albumin 2.3 L Globulin 2.90 Albumin/Globuli 0.79 n Ratio Test 02/21/18 19:57 02/21/18 21:25 02/22/18 02:55 Vancomycin 11.0 Level Trough Bedside Glucose 103 Blood Gas Blood arterial Specimen Source Arterial Blood 02/22/2018 3:00 Date Drawn :17 AM Arterial Blood 7.309 L pH (Temp corrected ) Arterial Blood 41.9 pCO2 (Temp correct) Arterial Blood 90.6 pO2 (Temp corrected ) Arterial Blood 20.6 L HCO3 Arterial Blood -5.4 L Base Excess Arterial Blood 96.1 Oxygen Saturati on Garrett Test ACCEPTAB Arterial Blood Right Radial Gas Puncture Site Arterial 0.2 Blood Carboxyhe moglobin Arterial Blood 0.3 Methemoglobin Blood Gas A-a 580.5 H O2 Differential Oxyhemoglobin 95.6 Percent Blood Gas 37.0 Temperature Blood Gas MASK - NRB Modality FiO2 100.0 Blood Gas MA Notified Whom Blood Gas 02/22/2018 3:20 Notified Time :54 AM Consultation Date/Type/Reason Admit Date/Time Feb 18, 2018 at 21:44 Reason for Consultation Asked to see this patient palliative care consultation. He is a 52-year-old gentleman whose history is primarily taken from his medical records and speaking with the admitting physician. She with a history of from [facility]way facility with sepsis syndrome. Patient apparently became short of breath with nausea vomiting and temperatures to 100.5 once medical record it does not give ice a history of patient's baseline cognitive status. And according medical records assess for CVAs. When initially seen patient in medical room he is agonal and minimally responsive to any verbal or tactile stimulation, unable to give a history. Past Medical History Medications Current Medications Ondansetron HCl (Zofran Inj) 4 mg Q6H PRN IV NAUSEA AND/OR VOMITING; Start 02/18/18 at 22:00 I[address] [place] (Atrovent 0.02% (Neb)) 0.5 mg Q2H RESP THERAPY PRN NEB SHORTNESS OF BREATH; Start 02/18/18 at 22:00 Acetaminophen (Tylenol Liquid) 650 mg Q6H PRN PO PAIN LEVEL 1-3 OR FEVER Last administered on 02/22/18at 02:59; Admin Dose 650 MG; Start 02/18/18 at 22:00 Heparin Sodium (Porcine) (Heparin (5000 Units/1ml)) 5,000 unit Q8 SC Last administered on 02/22/18at 07:00; Admin Dose 5,000 UNIT; Start 02/18/18 at 22:00 Vancomycin HCl (Vanco Iv Per Pharmacy) VANCOMYCIN PER PHARMACY PER PROTOCOL XX ; Start 02/18/18 at 22:00 Amantadine HCl (Symmetrel) 100 mg BID PO Last administered on 02/21/18at 21:11; Admin Dose 100 MG; Start 02/19/18 at 09:00 Ascorbic Acid (Vitamin C) 500 mg BID PO Last administered on 02/21/18at 21:11; Admin Dose 500 MG; Start 02/19/18 at 09:00 Baclofen (Lioresal) 20 mg BID PO Last administered on 02/21/18at 21:11; Admin Dose 20 MG; Start 02/19/18 at 09:00 Bisacodyl (Dulcolax Supp) 10 mg Q24H [place] Last administered on 02/21/18at 21:11; Admin Dose 10 MG; Start 02/18/18 at 22:00 Docusate Sodium (Colace) 100 mg BID PO Last administered on 02/21/18at 21:11; Admin Dose 100 MG; Start 02/19/18 at 09:00 Escitalopram Oxalate (Lexapro) 10 mg QHS PO Last administered on 02/21/18at 21:11; Admin Dose 10 MG; Start 02/19/18 at 21:00 Olanzapine (Zyprexa) 2.5 mg BID PO Last administered on 02/21/18at 21:11; Admin Dose 2.5 MG; Start 02/19/18 at 09:00 Diagnostic Test (Pha) (Accu-Chek) 1 ea 02 XX Last administered on 02/19/18at 01:08; Admin Dose 1 EA; Start 02/19/18 at 02:00 Miscellaneous Information 1 ea NOTE XX ; Start 02/18/18 at 23:00 Glucose (Glutose) 15 gm Q15M PRN PO DECREASED GLUCOSE; Start 02/18/18 at 23:00 Glucose (Glutose) 22.5 gm Q15M PRN PO DECREASED GLUCOSE; Start 02/18/18 at 23:00 Dextrose (D50w Syringe) 25 ml Q15M PRN IV DECREASED GLUCOSE; Start 02/18/18 at 23:00 Dextrose (D50w Syringe) 50 ml Q15M PRN IV DECREASED GLUCOSE; Start 02/18/18 at 23:00 Glucagon (Glucagen) 1 mg Q15M PRN IM DECREASED GLUCOSE; Start 02/18/18 at 23:00 Glucose (Glutose) 15 gm Q15M PRN BUCCAL DECREASED GLUCOSE; Start 02/18/18 at 23:00 Hydromorphone HCl (Dilaudid) 0.2 mg Q4H PRN IV SEVERE PAIN LEVEL 7-10 Last administered on 02/21/18at 00:28; Admin Dose 0.2 MG; Start 02/19/18 at 03:30 Insulin Aspart (Novolog Insulin Pen) NOVOLOG *MILD* ALGORITHM WITH MEALS BEDTIME SC ; Start 02/19/18 at 17:35 IV Flush (NS 10 ml) 10 ml BID IV Last administered on 02/21/18at 20:48; Admin Dose 10 ML; Start 02/19/18 at 21:00 Lorazepam (Ativan) 0.5 mg Q6H PRN IV AGITATION Last administered on 02/22/18at 04:35; Admin Dose 0.5 MG; Start 02/20/18 at 00:00 Vancomycin HCl 250 ml @ 125 mls/hr Q12H IVPB Last administered on 02/21/18at 21:31; Admin Dose 125 MLS/HR; Start 02/20/18 at 09:00 Sodium Hypochlorite (Dakin'S (Dilute 1/40)) 1 applic DAILY IRR ; Start 02/21/18 at 09:00 Piperacillin Sod/ Tazobactam Sod 100 ml @ 200 mls/hr Q6 IVPB Last administered on 02/22/18at 06:00; Admin Dose 200 MLS/HR; Start 02/21/18 at 18:00 Levalbuterol (Xopenex Neb) 1.25 mg Q4H RESP THERAPY PRN HHN SHORTNESS OF BREATH; Start 02/22/18 at 03:00 Allergies: Coded Allergies: No Known Allergy (Unverified , 02/18/18) Past Surgical History Past Surgical Hx: no surgical history Social History Alcohol Use: none Smoking Status: Former smoker Exam/Review of Systems Vital Signs Vitals Vital Signs Date Temp Pulse Resp B/P (MAP) Pulse Ox O2 O2 Flow FiO2 Time Delivery Rate 02/22/18 12.0 100 04:58 02/22/18 99.2 148 18 131/82 95 04:13 (98) 02/21/18 Nasal 15:52 Cannula Intake and Output 02/21/18 02/21/18 02/22/18 1515:00 23:00 07:00 OutputOutput Total 1250 ml 600 ml BalanceBalance -1250 ml -600 ml Exam Constitutional: non-verbal, distress, frail Head: other (Alar retractions) Eyes: other (Not evaluate) ENMT: nl external ears & nose, nl lips & teeth, nl nasal mucosa & septum Respiratory: clear to auscultation, normal air movement, congested cough, crackles/rales, diminished breath sounds, labored breathing Cardiovascular: regular rate and rhythm, nl pulses; No bruits, No diastolic murmur, No edema, No gallop, No irregular rhythm, No jugular venous distention (JVD), No murmurs/extra sounds, No rub, No systolic murmur, No S3, No S4, No other Neurological: other (Unresponsive to tactile stimulation minimally to verbal no spontaneous movement sluggish oculocephalic agonal respirations) Medications Medications Current Medications Ondansetron HCl (Zofran Inj) 4 mg Q6H PRN IV NAUSEA AND/OR VOMITING; Start 02/18/18 at 22:[address] [place] (Atrovent 0.02% (Neb)) 0.5 mg Q2H RESP THERAPY PRN NEB SHORTNESS OF BREATH; Start 02/18/18 at 22:00 Acetaminophen (Tylenol Liquid) 650 mg Q6H PRN PO PAIN LEVEL 1-3 OR FEVER Last administered on 02/22/18at 02:59; Admin Dose 650 MG; Start 02/18/18 at 22:00 Heparin Sodium (Porcine) (Heparin (5000 Units/1ml)) 5,000 unit Q8 SC Last administered on 02/22/18at 07:00; Admin Dose 5,000 UNIT; Start 02/18/18 at 22:00 Vancomycin HCl (Vanco Iv Per Pharmacy) VANCOMYCIN PER PHARMACY PER PROTOCOL XX ; Start 02/18/18 at 22:00 Amantadine HCl (Symmetrel) 100 mg BID PO Last administered on 02/21/18at 21:11; Admin Dose 100 MG; Start 02/19/18 at 09:00 Ascorbic Acid (Vitamin C) 500 mg BID PO Last administered on 02/21/18at 21:11; Admin Dose 500 MG; Start 02/19/18 at 09:00 Baclofen (Lioresal) 20 mg BID PO Last administered on 02/21/18at 21:11; Admin Dose 20 MG; Start 02/19/18 at 09:00 Bisacodyl (Dulcolax Supp) 10 mg Q24H [place] Last administered on 02/21/18at 21:11; Admin Dose 10 MG; Start 02/18/18 at 22:00 Docusate Sodium (Colace) 100 mg BID PO Last administered on 02/21/18 21:11; Admin Dose 100 MG; Start 02/19/18 at 09:00 Escitalopram Oxalate (Lexapro) 10 mg QHS PO Last administered on 02/21/18at 21:11; Admin Dose 10 MG; Start 02/19/18 at 21:00 Olanzapine (Zyprexa) 2.5 mg BID PO Last administered on 02/21/18at 21:11; Admin Dose 2.5 MG; Start 02/19/18 at 09:00 Diagnostic Test (Pha) (Accu-Chek) 1 ea 02 XX Last administered on 02/19/18at 01:08; Admin Dose 1 EA; Start 02/19/18 at 02:00 Miscellaneous Information 1 ea NOTE XX ; Start 02/18/18 at 23:00 Glucose (Glutose) 15 gm Q15M PRN PO DECREASED GLUCOSE; Start 02/18/18 at 23:00 Glucose (Glutose) 22.5 gm Q15M PRN PO DECREASED GLUCOSE; Start 02/18/18 at 23:00 Dextrose (D50w Syringe) 25 ml Q15M PRN IV DECREASED GLUCOSE; Start 02/18/18 at 23:00 Dextrose (D50w Syringe) 50 ml Q15M PRN IV DECREASED GLUCOSE; Start 02/18/18 at 23:00 Glucagon (Glucagen) 1 mg Q15M PRN IM DECREASED GLUCOSE; Start 02/18/18 at 23:00 Glucose (Glutose) 15 gm Q15M PRN BUCCAL DECREASED GLUCOSE; Start 02/18/18 at 23:00 Hydromorphone HCl (Dilaudid) 0.2 mg Q4H PRN IV SEVERE PAIN LEVEL 7-10 Last administered on 02/21/18at 00:28; Admin Dose 0.2 MG; Start 02/19/18 at 03:30 Insulin Aspart (Novolog Insulin Pen) NOVOLOG *MILD* ALGORITHM WITH MEALS BEDTIME SC ; Start 02/19/18 at 17:35 IV Flush (NS 10 ml) 10 ml BID IV Last administered on 02/21/18at 20:48; Admin Dose 10 ML; Start 02/19/18 at 21:00 Lorazepam (Ativan) 0.5 mg Q6H PRN IV AGITATION Last administered on 02/22/18at 04:35; Admin Dose 0.5 MG; Start 02/20/18 at 00:00 Vancomycin HCl 250 ml @ 125 mls/hr Q12H IVPB Last administered on 02/21/18at 21:31; Admin Dose 125 MLS/HR; Start 02/20/18 at 09:00 Sodium Hypochlorite (Dakin'S (Dilute 1/40)) 1 applic DAILY IRR ; Start 02/21/18 at 09:00 Piperacillin Sod/ Tazobactam Sod 100 ml @ 200 mls/hr Q6 IVPB Last administered on 02/22/18at 06:00; Admin Dose 200 MLS/HR; Start 02/21/18 at 18:00 Levalbuterol (Xopenex Neb) 1.25 mg Q4H RESP THERAPY PRN HHN SHORTNESS OF BREATH; Start 02/22/18 at 03:00 ROSALIE PHIPPS Feb 22, 2018 07:30
--- NOTE | 2018-02-22 07:57 | CONS ---
Date/Time of Note Date/Time of Note DATE: 02/22/18 TIME: 07:55 Assessment/Plan Assessment/Plan Assessment/Plan Spoke with daughter who is complete agreement with comfort measures.. pt is suffering with sever resp distress, there is hope for meaningfull recovery,,,she agrees he has suffered too much Result Diagram: 02/21/18 1036 02/21/18 1036 Results 24hrs Laboratory Tests Test 02/21/18 07:59 02/21/18 10:36 02/21/18 12:11 02/21/18 17:47 Bedside Glucose 74 94 95 White Blood 25.9 H Count Red Blood Count 3.84 L Hemoglobin 8.6 L Hematocrit 27.8 L Mean 72.4 L Corpuscular Volume Mean 22.4 L Corpuscular Hemoglobin Mean 30.9 L Corpuscular Hemoglobin Conc ent Red Cell 19.4 H Distribution Width Platelet Count 427 H Mean Platelet 8.5 Volume Immature 1.200 H Granulocytes % Neutrophils % Segmented 87 H Neutrophils % (Manual) Band 4 Neutrophils % (Manual) Lymphocytes % Lymphocytes % 5 L (Manual) Reactive 2 H Lymphocytes % (Manual) Monocytes % Monocytes % 2 (Manual) Eosinophils % Basophils % Nucleated Red 0.0 Blood Cells % Immature 0.320 H Granulocytes # Neutrophils # Neutrophils # 22.8 H (Manual) Band 1.0 H Neutrophils # Lymphocytes 1.2 (Manual) Lymphocytes # Reactive 0.5 H Lymphocytes # Monocytes # Monocytes # 0.5 (Manual) Eosinophils # Basophils # Nucleated Red Blood Cells # Platelet NORMAL Estimate Polychromasia 1+ Poikilocytosis 1+ Anisocytosis 1+ Microcytosis 1+ Macrocytosis 1+ Target Cells 1+ Ovalocytes 1+ Sodium Level 145 H Potassium Level 2.6 *L Chloride Level 116 H Carbon Dioxide 21 Level Anion Gap 8 Blood Urea 16 # Nitrogen Creatinine 0.50 L Est Glomerular > 60 Filtrat Rate mL/min Glucose Level 86 Calcium Level 9.2 Total Bilirubin 0.1 L Direct 0.00 Bilirubin Indirect 0.1 Bilirubin Aspartate Amino 50 #H Transf (AST/SGO T) Alanine 33 Aminotransferas e (ALT/SGPT) Alkaline 158 H Phosphatase Total Protein 5.2 L Albumin 2.3 L Globulin 2.90 Albumin/Globuli 0.79 n Ratio Test 02/21/18 19:57 02/21/18 21:25 02/22/18 02:55 Vancomycin 11.0 Level Trough Bedside Glucose 103 Blood Gas Blood arterial Specimen Source Arterial Blood 02/22/2018 3:00 Date Drawn :17 AM Arterial Blood 7.309 L pH (Temp corrected ) Arterial Blood 41.9 pCO2 (Temp correct) Arterial Blood 90.6 pO2 (Temp corrected ) Arterial Blood 20.6 L HCO3 Arterial Blood -5.4 L Base Excess Arterial Blood 96.1 Oxygen Saturati on Garrett Test ACCEPTAB Arterial Blood Right Radial Gas Puncture Site Arterial 0.2 Blood Carboxyhe moglobin Arterial Blood 0.3 Methemoglobin Blood Gas A-a 580.5 H O2 Differential Oxyhemoglobin 95.6 Percent Blood Gas 37.0 Temperature Blood Gas MASK - NRB Modality FiO2 100.0 Blood Gas MA Notified Whom Blood Gas 02/22/2018 3:20 Notified Time :54 AM Consultation Date/Type/Reason Admit Date/Time Feb 18, 2018 at 21:44 Initial Consult Date Exam/Review of Systems Vital Signs Vitals Vital Signs Date Temp Pulse Resp B/P (MAP) Pulse Ox O2 O2 Flow FiO2 Time Delivery Rate 02/22/18 12.0 100 04:58 02/22/18 99.2 148 18 131/82 95 04:13 (98) 02/21/18 Nasal 15:52 Cannula Intake and Output 02/21/18 02/21/18 02/22/18 1515:00 23:00 07:00 OutputOutput Total 1250 ml 600 ml BalanceBalance -1250 ml -600 ml Medications Medications Current Medications Ondansetron HCl (Zofran Inj) 4 mg Q6H PRN IV NAUSEA AND/OR VOMITING; Start 02/18/18 at 22:00 Ipratropium Defiance (Atrovent 0.02% (Neb)) 0.5 mg Q2H RESP THERAPY PRN NEB SHORTNESS OF BREATH; Start 02/18/18 at 22:00 Acetaminophen (Tylenol Liquid) 650 mg Q6H PRN PO PAIN LEVEL 1-3 OR FEVER Last administered on 02/22/18at 02:59; Admin Dose 650 MG; Start 02/18/18 at 22:00 Heparin Sodium (Porcine) (Heparin (5000 Units/1ml)) 5,000 unit Q8 SC Last administered on 02/22/18at 07:00; Admin Dose 5,000 UNIT; Start 02/18/18 at 22:00 Vancomycin HCl (Vanco Iv Per Pharmacy) VANCOMYCIN PER PHARMACY PER PROTOCOL XX ; Start 02/18/18 at 22:00 Amantadine HCl (Symmetrel) 100 mg BID PO Last administered on 02/21/18at 21:11; Admin Dose 100 MG; Start 02/19/18 at 09:00 Ascorbic Acid (Vitamin C) 500 mg BID PO Last administered on 02/21/18at 21:11; Admin Dose 500 MG; Start 02/19/18 at 09:00 Baclofen (Lioresal) 20 mg BID PO Last administered on 02/21/18at 21:11; Admin Dose 20 MG; Start 02/19/18 at 09:00 Bisacodyl (Dulcolax Supp) 10 mg Q24H OK Last administered on 02/21/18 21:11; Admin Dose 10 MG; Start 02/18/18 at 22:00 Docusate Sodium (Colace) 100 mg BID PO Last administered on 02/21/18at 21:11; Admin Dose 100 MG; Start 02/19/18 at 09:00 Escitalopram Oxalate (Lexapro) 10 mg QHS PO Last administered on 02/21/18at 21:11; Admin Dose 10 MG; Start 02/19/18 at 21:00 Olanzapine (Zyprexa) 2.5 mg BID PO Last administered on 02/21/18at 21:11; Admin Dose 2.5 MG; Start 02/19/18 at 09:00 Diagnostic Test (Pha) (Accu-Chek) 1 ea 02 XX Last administered on 02/19/18at 01:08; Admin Dose 1 EA; Start 02/19/18 at 02:00 Miscellaneous Information 1 ea NOTE XX ; Start 02/18/18 at 23:00 Glucose (Glutose) 15 gm Q15M PRN PO DECREASED GLUCOSE; Start 02/18/18 at 23:00 Glucose (Glutose) 22.5 gm Q15M PRN PO DECREASED GLUCOSE; Start 02/18/18 at 23:00 Dextrose (D50w Syringe) 25 ml Q15M PRN IV DECREASED GLUCOSE; Start 02/18/18 at 23:00 Dextrose (D50w Syringe) 50 ml Q15M PRN IV DECREASED GLUCOSE; Start 02/18/18 at 23:00 Glucagon (Glucagen) 1 mg Q15M PRN IM DECREASED GLUCOSE; Start 02/18/18 at 23:00 Glucose (Glutose) 15 gm Q15M PRN BUCCAL DECREASED GLUCOSE; Start 02/18/18 at 23:00 Hydromorphone HCl (Dilaudid) 0.2 mg Q4H PRN IV SEVERE PAIN LEVEL 7-10 Last ad ministered on 02/21/18at 00:28; Admin Dose 0.2 MG; Start 02/19/18 at 03:30 Insulin Aspart (Novolog Insulin Pen) NOVOLOG *MILD* ALGORITHM WITH MEALS BEDTIME SC ; Start 02/19/18 at 17:35 IV Flush (NS 10 ml) 10 ml BID IV Last administered on 02/21/18at 20:48; Admin Dose 10 ML; Start 02/19/18 at 21:00 Lorazepam (Ativan) 0.5 mg Q6H PRN IV AGITATION Last administered on 02/22/18at 04:35; Admin Dose 0.5 MG; Start 02/20/18 at 00:00 Vancomycin HCl 250 ml @ 125 mls/hr Q12H IVPB Last administered on 02/21/18at 21:31; Admin Dose 125 MLS/HR; Start 02/20/18 at 09:00 Sodium Hypochlorite (Dakin'S (Dilute 140)) 1 applic DAILY IRR ; Start 02/21/18 at 09:00 Piperacillin Sod/ Tazobactam Sod 100 ml @ 200 mls/hr Q6 IVPB Last administered on 02/22/18at 06:00; Admin Dose 200 MLS/HR; Start 02/21/18 at 18:00 Levalbuterol (Xopenex Neb) 1.25 mg Q4H RESP THERAPY PRN HHN SHORTNESS OF BREATH; Start 02/22/18 at 03:00 ROSALIE PHIPPS Feb 22, 2018 07:57
[2018-02-22] MEDS ORDERED: LORAZEPAM (MDV) 60 MG in DEXTROSE 5% 30 ML IV SCH (08:00)
[2018-02-22] MEDS: INSULIN ASPART [NOVOLOG] 3 ML PEN SC SCH (08:00)
--- NOTE | 2018-02-22 08:32 | NUR ---
At 0230, noted pt. to be tachypneic, RR 32, labored breathing, some wheezing, occasional crackles noted, unresponsive, desaturated to 87% at 2L O2, hr 148, bp 131/56, T=99.2; called Dr. Chawla who came to assess pt. NGT drainage was dark green more than a 100 cc , connected to low suction & obtained 1000 cc of drainage initially, ; earlier at 2230 , held NGT feeding x 4 hours for high residuals. Orders carried out/ Dr. Chawla . Per MD order, Ativan 0.5 mg was given IV & pt. became less tachypneic. Pt. was also bolused w/ [address] Chawla called to inform family member of pt.s situation.
[2018-02-22] MEDS: OLANZAPINE 2.5 MG TAB PO SCH (09:00)
[2018-02-22] MEDS: BACLOFEN 10 MG TAB PO SCH (09:00)
[2018-02-22] MEDS: ASCORBIC ACID 500 MG TAB PO SCH (09:00)
[2018-02-22] MEDS: AMANTADINE 100 MG CAP PO SCH (09:00)
[2018-02-22] MEDS: VANCOMYCIN 1 GM 250 ML IVPB SCH (09:00)
[2018-02-22] MEDS: SODIUM HYPOCHLORITE (1/40) 1 APPLIC BTL IRR SCH (09:00)
[2018-02-22] MEDS ORDERED: morphine (DRIP) 100 MG/100 ML 100 ML IV SCH ×2 (09:00→15:30)
[2018-02-22] MEDS: DOCUSATE SODIUM 100 MG CAP PO SCH (09:00)
[2018-02-22] MEDS ORDERED: LORAZEPAM 4 MG/ML VIAL IV PRN ×3 (10:00→15:30)
--- NOTE | 2018-02-22 11:33 | NUR ---
Wound Care Consult: This is a 52-year-old male with a questionable history of multiple sclerosis but recent MRI was negative, who presented to the ED via rescue ambulance from [facility] for evaluation of fever tachycardia. Patient complains of generalized weakness but denies shortness of breath, chest pain or palpitations. Abdominal pain, nausea vomiting. Fever at [facility] was apparently 100.5 degrees. The sister reports that approximately for the last 1 year or so patient has been slowly deteriorating. She has noticed that his behavior has become aggressive and he also has become more paranoid. 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 He has been in and out of hospitals and he was currently staying at the retirement facility. She notes that he has had problems with his memory as well and he has been diagnosed with dementia. He was given a diagnosis of multiple sclerosis however his MRIs have been negative. He has progressively gotten worse in his mobility and initially was on a cane and then progressed to a walker with him recently not being able to be mobile. Wound care team consulted for wounds present on admission: Sacrococcyx pressure ulcer stage 4, palpable sacral bone. 5cm x 5cm x 1.6cm. Wound bed with yellow slough 75% and pink-red granulating tissue, small serosanguineous drainage noted. Wound edge epibole formation noted and periwound with maceration form moisture build-up. Mild foul odor noted. Treatment recommendation include, cleanse with Dakin's solution (0.125%), pat dry, apply Santyl soaked gauze and pack wound bed, cover with foam border dressing daily and as needed. Left trochanter pressure ulcer stage 4, palpable trochanter bone. 4cm x 4cm x 2 cm. Some undermining 12 o clock to 12, 0.8cm Wound bed with yellow slough 75% and pink-red granulating tissue, small serosanguineous drainage noted. Wound edge epibole formation noted and periwound with maceration form moisture build-up. Mild foul odor noted. Treatment recommendation include, cleanse with Dakin's solution (0.125%), pat dry, apply Santyl soaked gauze and pack wound bed, cover with foam border dressing daily and as needed. Right Trochanter healing stage 4 injury with scar formation noted. Keep clean and intact. Place foam border dressing for protection. Right Knee slow blanching pressure injury stage 1 with scar formation noted. Keep clean and intact. apply Venelex ointment and place foam border dressing for protection. Bilateral heels blanchable redness noted. Keep clean and intact.apply Venelex ointment and place foam border dressing for protection. Continue Clinitron bed use Reposition every 2 hours per department protocol Elevate heels with pillows to off-load. Report skin changes to PMD and/or WCT for further evaluation as needed CONCIHTA coordinated with dusty Gurrola RN regarding assessment and treatment plan Adam Garcia, OLIVIA MSN WOCN CM
--- NOTE | 2018-02-22 11:36 | CONS ---
Date/Time of Note Date/Time of Note DATE: 02/22/18 TIME: 11:34 Assessment/Plan Assessment/Plan Hospital Course No acute events overnight patient is comfortable, transitioned to comfort care Microbiology: Blood culture on admission grew E. coli ESBL and coag negative staph species, urine culture also growing E. coli ESBL Antimicrobials: none Indwelling: Chavarria catheter, PICC line Physical examination: Chronically ill-appearing elderly man who is in no distress. Head atraumatic normocephalic sclera nonicteric. Neck is supple chest rise symmetrical breath sounds diminished bases. Heart: S1-S2. Abdomen soft bowel sounds present. Extremities contractured lower extremities with multiple necrotic wounds. Skin positive for anasarca unstageable multiple wounds Assessment: 1. Severe sepsis with shock on admission 2. Multiple unstageable decubitus with radiographic imaging of osteomyelitis of left femur and left foot 3. Polymicrobial bacteremia 4. Healthcare associated pneumonia, possibly aspiration 5. Acute kidney failure, possibly on chronic kidney disease 6. Bilateral hydronephrosis 7. Encephalopathy Plan: Clinically unchanged, antibiotics dc'd, pt was transitioned to comfort care Result Diagram: 02/21/18 1036 02/21/18 1036 Results 24hrs Laboratory Tests Test 02/21/18 12:11 02/21/18 17:47 02/21/18 19:57 02/21/18 21:25 Bedside Glucose 94 95 103 Vancomycin 11.0 Level Trough Test 02/22/18 02:55 Blood Gas Blood arterial Specimen Source Arterial Blood 02/22/2018 3:00 Date Drawn :17 AM Arterial Blood 7.309 L pH (Temp corrected ) Arterial Blood 41.9 pCO2 (Temp correct) Arterial Blood 90.6 pO2 (Temp corrected ) Arterial Blood 20.6 L HCO3 Arterial Blood -5.4 L Base Excess Arterial Blood 96.1 Oxygen Saturati on Garrett Test ACCEPTAB Arterial Blood Right Radial Gas Puncture Site Arterial 0.2 Blood Carboxyhe moglobin Arterial Blood 0.3 Methemoglobin Blood Gas A-a 580.5 H O2 Differential Oxyhemoglobin 95.6 Percent Blood Gas 37.0 Temperature Blood Gas MASK - NRB Modality FiO2 100.0 Blood Gas MA Notified Whom Blood Gas 02/22/2018 3:20 Notified Time :54 AM Consultation Date/Type/Reason Admit Date/Time Feb 18, 2018 at 21:44 Initial Consult Date Type of Consult ID Exam/Review of Systems Vital Signs Vitals Vital Signs Date Temp Pulse Resp B/P (MAP) Pulse Ox O2 O2 Flow FiO2 Time Delivery Rate 02/22/18 99.2 99 18 129/82 98 11:22 (98) 02/22/18 Non 15.0 08:00 Rebreather 02/22/18 100 04:58 Intake and Output 02/21/18 02/21/18 02/22/18 1515:00 23:00 07:00 IntakeIntake Total 100 ml 1835 ml OutputOutput Total 1250 ml 600 ml 2000 ml BalanceBalance -1250 ml -500 ml -165 ml Medications Medications Current Medications Morphine Sulfate/ Sodium Chloride 100 ml @ 1 mls/hr TITRATE IV Last administered on 02/22/18at 09:50; Admin Dose 1 MLS/HR; Start 02/22/18 at 09:00 Lorazepam (Ativan) 2 mg Q2H PRN IV AGITATION; Start 02/22/18 at 11:00 CALVIN MARSHALL NP Feb 22, 2018 11:36
--- NOTE | 2018-02-22 11:45 | NUR ---
Received pt this morning unresponsive, tachypneic HR 140's. Seen by Dr. Santizo with comfort measure only order. Morphine drip 1 mg/hr started, checked with another Shade. clerical and administrative workers consult, Vitas consult. To transfer to med/surg. Reports given to Jeane BAKER. Pt to transfer to room 2254.
--- NOTE | 2018-02-22 11:49 | NUR ---
SW: [facility] During daily morning rounds today, Dr. Mercado stated that patient meets criteria for [facility]. SW met with patient's family at bedside. They stated that patient is currently on comfort measures. SW educated them on [facility]. They stated they have heard about hospice from someone they know, and provided verbal consent for referral to be made to [facility]. NOBLE called and made referral to Darion from [facility] ([phone]/ fax: [phone]). Plan is for patient to downgrade to med/surg unit. SW remains available as needed. [facility] park[facility] met with patient at bedside.
--- NOTE | 2018-02-22 12:30 | NUR ---
Received patient to unit in room 2254 with multiple family members at bedside. BP WNL, HR 140's, temp 98.4, RR 26 and labored. Connected pt to low/intermittent wall suction. Morphine drip running at 1mg/hour. Will increase to 2mg/hour due to labored breathing. All needs met at this time. Will continue to monitor
--- NOTE | 2018-02-22 13:56 | NUR ---
SS Note: F/U Pt transfer from Tele and already referred to [facility] by Tele SW. Ida Salazar from [facility] visited unit and requested to speak with SW. She stated their hospice company was following the case earlier and willing to do inpatient hospice contract with hospital to service this pt. SW f/u with pt's sister, Ann, and other family at bedside. She verbalized they want to keep [facility] and already signed consent.
--- NOTE | 2018-02-22 14:44 | PN ---
Date/Time of Note Date/Time of Note DATE: 02/22/18 TIME: 14:40 Assessment/Plan VTE Prophylaxis Risk score (from Ns)>0 risk: 8 SCD applied (from Ns): Yes Pharmacological prophylaxis: heparin Lines/Catheters IV Catheter Type (from Nrs): PICC Line Central line still needed: Yes Urinary Cath still in place: Yes Reason Cath still needed: urinary retention Assessment/Plan Hospital Course 52 yo male with burned out MS with severe contractures leading to unstagable sacral decubitus and foot ulcerations presented with sepsis Found to have GNR bactermia and UTI as well as femur osteomyelitis and foot osteomyelitis Now transitioning to hospice care - Management of dying process per palliative care Result Diagram: 02/21/18 1036 02/21/18 1036 Results 24hrs Laboratory Tests Test 02/21/18 17:47 02/21/18 19:57 02/21/18 21:25 02/22/18 02:55 Bedside Glucose 95 103 Vancomycin 11.0 Level Trough Blood Gas Blood arterial Specimen Source Arterial Blood 02/22/2018 3:00 Date Drawn :17 AM Arterial Blood 7.309 L pH (Temp corrected ) Arterial Blood 41.9 pCO2 (Temp correct) Arterial Blood 90.6 pO2 (Temp corrected ) Arterial Blood 20.6 L HCO3 Arterial Blood -5.4 L Base Excess Arterial Blood 96.1 Oxygen Saturati on Garrett Test ACCEPTAB Arterial Blood Right Radial Gas Puncture Site Arterial 0.2 Blood Carboxyhe moglobin Arterial Blood 0.3 Methemoglobin Blood Gas A-a 580.5 H O2 Differential Oxyhemoglobin 95.6 Percent Blood Gas 37.0 Temperature Blood Gas MASK - NRB Modality FiO2 100.0 Blood Gas LA Notified Whom Blood Gas 02/22/2018 3:20 Notified Time :54 AM Subjective 24 Hr Interval Summary Free Text/Dictation Patient decompensated from respiratory standpoint Now transitioned to comfort care per Dr Santizo Exam/Review of Systems Vital Signs Vitals Vital Signs Date Temp Pulse Resp B/P (MAP) Pulse Ox O2 O2 Flow FiO2 Time Delivery Rate 02/22/18 98.4 118 20 140/62 94 Trach 13:00 (88) Collar 02/22/18 15.0 100 11:54 Intake and Output 02/21/18 02/21/18 02/22/18 1515:00 23:00 07:00 IntakeIntake Total 100 ml 1835 ml OutputOutput Total 1250 ml 600 ml 2000 ml BalanceBalance -1250 ml -500 ml -165 ml Medications Medications Current Medications Morphine Sulfate/ Sodium Chloride 100 ml @ 1 mls/hr TITRATE IV Last ad ministered on 02/22/18at 09:50; Admin Dose 1 MLS/HR; Start 02/22/18 at 09:00 Lorazepam (Ativan) 2 mg Q2H PRN IV AGITATION; Start 02/22/18 at 11:00 DARSHANA DURÁN MD Feb 22, 2018 14:44
[2018-02-22] MEDS ORDERED: BISACODYL 10 MG SUPP PR PRN (15:30)
[2018-02-22] MEDS ORDERED: ACETAMINOPHEN 650 MG SUPP PR PRN (15:30)
[2018-02-22] MEDS ORDERED: ATROPINE 1% 5 ML OPH SL PRN (15:30)
[2018-02-22] MEDS ORDERED: morphine 4 MG/ML VIAL IV PRN (15:30)
[2018-02-22] MEDS ORDERED: DIMETHICONE STICK TOP PRN (15:30)
[2018-02-22] MEDS ORDERED: ARTIFICIAL TEARS 15 ML OPH BOTH EYES PRN (15:30)
[2018-02-22] MEDS ORDERED: ALBUTEROL/IPRATROPIUM (NEB) 3 ML AMP HHN PRN (15:30)
[2018-02-22] MEDS ORDERED: ONDANSETRON 4 MG INJ IV PRN (15:30)
--- NOTE | 2018-02-22 15:30 | NUR ---
Patient being transitioned to Hospice at this time
--- NOTE | 2018-02-22 18:53 | NUR ---
Patient resting in bed. Appears comfortable at this time. Repositioned every 2 hours but very contracted in lower extremities. Multiple family members at bedside. Support provided. Will continue to monitor and endorse to next shift
--- NOTE | 2018-02-22 21:00 | NUR ---
Patient in room comfortable and with no signs of distress at this time. Morphine drip in place at this time with no titration needed. 12L currently being infused at this time via nonrebreather mask. Family at bedside. Will continue to monitor throughout shift. Addendum: 02/23/18 at 0237 by STACY HONG RN Patient repositioned according to patient's comfort at this time. Safety precautions and hourly rounding currently in place.
--- NOTE | 2018-02-22 23:00 | NUR ---
Patient in room comfortable and with no signs of distress noted at this time. Patient with no signs of pain via FACES pain scale.Slow/shallow respirations noted at this time. Morphine drip ongoing with no titration needed. Family at bedside. Safety precautions and hourly rounding currently in place at this time. Addendum: 02/23/18 at 0238 by STACY HONG RN Patient repositioned according to patient's comfort at this time. Safety precautions and hourly rounding currently in place.
--- NOTE | 2018-02-23 01:29 | NUR ---
Morphine drip ended at this time and 60 mLs of Morphine wasted with Jazmin BAKER as witness.
--- NOTE | 2018-02-23 01:41 | EN ---
Date/Time of Note Date/Time of Note DATE: 02/23/18 TIME: 01:40 Event Note Medicine Medicine Event Note Pronouncement note Patient seen and examined at the bedside. Patient nonresponsive to verbal command. Patient nonresponsive to vigorous sternal rub. Pupils fixed and dilated and nonreactive to light bilaterally. No heart sounds appreciated on auscultation. Patient pronounced at approximately 1:29 AM. Family present at the bedside. Primary team aware. JANENE BE Feb 23, 2018 01:41
--- NOTE | 2018-02-23 01:45 | NUR ---
Alerted by family regarding patient's condition. Patient with no pulse noted approximately at 0110. Jazmin BAKER (Charge nurse) at bedside to confirm. Notified Dr. Hdz to confirm time and date of expiration. Dr. Hdz pronounced expiration of patient 02/23/18 at 0129 with family at bedside. Morphine drip stopped at 0129 with Jazmin BAKER, Charge Nurse, as witness. Oxygen and suction stopped at this time as well. Spoke with Charla from [employer] at 0136 regarding expiration of patient. Received notification of RN being sent to our unit at this time. Spoke with Bienvenido from [facility] at 0145 regarding patient's expiration and medical history. Awaiting call from Bienvenido at this time regarding further instructions. DN# [id number]. Family at bedside at this time with no signs of distress. Family verbalized understanding regarding next steps at this time. Will continue to update and monitor throughout shift. Addendum: 02/23/18 at 0500 by STACY HONG RN CORRECTION: RAMIN# [id number]
--- NOTE | 2018-02-23 03:05 | NUR ---
Motor Vehicle Emissions Inspector from [facility] and RN from [facility] arrived at this time. Family still at bedside with patient. No call from [facility] received at this time. Will continue to monitor. Addendum: 02/23/18 at 0508 by STACY HONG RN Supposed "home office representative" of [facility] is Crescencio Ny, cousin of the patient. No call received at this time confirming Crescencio as personnel responsible for pickup. Katerina RN, Filtration Supervisor, notified. Katerina RN, Jazmin RN (Charge Nurse), and security at bedside at 0330 explaining hospital protocol regarding release of patient's body to family and cousin. Cousin verbalizes understanding and insists that he has confirmed with [facility] that he would be responsible for taking his cousin to [facility]. Notified [facility] at this time and awaiting further confirmation.
--- NOTE | 2018-02-23 03:18 | NUR ---
Dr. Opal MD access control specialist for Dr. De La Paz, notified at this regarding expiration of patient.
--- NOTE | 2018-02-23 04:03 | NUR ---
Received notification from [employer] [facility] at this time that patient is not eligible. Received DN#: [id number]. Patient still in room at this time with family and cousin. Awaiting call from company responsible for picking up patient at this time. Received confirmation that patient is being sent to [facility]. Alerting family at this time. Addendum: 02/23/18 at 0512 by STACY HONG RN 0500: Received notification from Katerina BAKER, Bead Trimmer, regarding confirmation of the release of the patient to cousin Crescencio Ny. Katerina BAKER stated that she received call from Jennifer Suazo, Director of [facility], confirming that Crescencio Ny is noted in their files as the personnel responsible for taking patient to mortuary. Postmortem care provided at this time. Patient left with cousin, Crescencio Ny, and family members at 0510.
== END 2018-02-23 05:10 | disposition expired | DRG 981 ==
LOC: E/R 19:45 → ICU 21:44 → 6WM 02-19 20:05 → PP2 02-22 12:08
PROVIDERS: ADMIT Family Medicine; ATTEND Family Medicine
PROC: 02H633Z Insertion of Infusion Device into Right Atrium, Percutaneous Approach (ICD-10-PCS; 2018-02-19)
PROC: 0KBW0ZZ Excision of Left Foot Muscle, Open Approach (ICD-10-PCS; principal; 2018-02-20)
PROC: 0KBV0ZZ Excision of Right Foot Muscle, Open Approach (ICD-10-PCS; 2018-02-20)
DX: T83.511A Infection and inflammatory reaction due to indwelling urethral catheter, initial encounter (principal); L89.893 Pressure ulcer of other site, stage 3; L89.224 Pressure ulcer of left hip, stage 4; R65.21 Severe sepsis with septic shock; J18.9 Pneumonia, unspecified organism; J69.0 Pneumonitis due to inhalation of food and vomit; A41.51 Sepsis due to Escherichia coli [E. coli]; R65.20 Severe sepsis without septic shock; N17.9 Acute kidney failure, unspecified; M86.8X5 Other osteomyelitis, thigh; M86.8X7 Other osteomyelitis, ankle and foot; N13.30 Unspecified hydronephrosis; N39.0 Urinary tract infection, site not specified; N13.9 Obstructive and reflux uropathy, unspecified; G35 Multiple sclerosis; F20.9 Schizophrenia, unspecified; Z87.891 Personal history of nicotine dependence; G31.83 Neurocognitive disorder with Lewy bodies; F02.80 Dementia in other diseases classified elsewhere, unspecified severity, without behavioral disturbance, psychotic disturbance, mood disturbance, and anxiety; B96.20 Unspecified Escherichia coli [E. coli] as the cause of diseases classified elsewhere; Z16.12 Extended spectrum beta lactamase (ESBL) resistance; Z66 Do not resuscitate
CPT/HCPCS: 36415; 36569; 36600; 71045; 73630; 74018; 74176; 76775; 76937; 80053; 80061; 80202; 81001; 81003; 82533; 82570; 82728; 82803; 82962; 83036; 83540; 83605; 83735; 83930; 83935; 84300; 84439; 84443; 84481; 84484; 85025; 85610; 85730; 87040; 87070; 87081; 87086; 93005; 96374; 96375; C9113; J0692; J1170; J1644; J1815; J1956; J2060; J2185; J2270; J2543; J3370; J3480; J7030; J7040; P9047